=== PATIENT | female | born 1930 | race Caucasian/White ===

== ENCOUNTER 2018-03-04 11:42 | Inpatient (IN) ==
--- NOTE | 2018-03-04 13:36 | ED ---
HPI General Chief complaint: Back Pain/Injury Stated complaint: Fall Time Seen by Provider: 03/04/18 13:21 Source: patient and family Mode of arrival: EMS Limitations: no limitations History of Present Illness HPI narrative: 87-year-old female with a history of rheumatoid arthritis, chronic low back pain, CAD not on blood thinners presents to the emergency department for evaluation of low back pain after a fall that occurred at home. Patient states she had 2 falls today and believes they were mechanical falls. She says second fall was questionable because she does not know how she fell. She denies loss consciousness. Denies headache or blurred vision. Denies fevers, loss of bowel or bladder function, saddle anesthesia, IV drug use, direct trauma. She says she thinks she might be dehydrated because she does not drink enough water. Family expresses concern because of the frequent falls. Onset (ago): minute(s) Location: back Radiation: non-radiation Severity: mild Quality: aching and constant Pain Consistency: constant Relieving factors: none Exacerbating factors: none Associated symptoms: Denies confusion, chest pain, fever/chills, nausea/vomiting , shortness of breath, syncope and weakness Treatments prior to arrival: Reports none Related Data Home Medications Medication Instructions Recorded Confirmed acetaminophen [Tylenol Extra 500 mg PO BID 03/04/18 03/04/18 Strength] aspirin 81 mg PO DAILY 03/04/18 03/04/18 celecoxib 200 mg PO DAILY 03/04/18 03/04/18 folic acid 1 mg PO DAILY 03/04/18 03/04/18 latanoprost 1 drp OPHTHALMIC (EYE) QPM 03/04/18 03/04/18 nitroglycerin [Nitrostat] 0.4 mg SUBLINGUAL Q5-15M PRN 03/04/18 03/04/18 prednisone 5 mg PO DAILY 03/04/18 03/04/18 rabeprazole 20 mg PO EVERY OTHER DAY 03/04/18 03/04/18 rosuvastatin 5 mg PO Q3D 03/04/18 03/04/18 triamterene-hydrochlorothiazid 1 tab PO DAILY 03/04/18 03/04/18 Allergies Allergy/AdvReac Type Severity Reaction Status Date / Time No Known Allergies Allergy Verified 03/04/18 12:15 Review of Systems ROS: all other systems reviewed are negative PMFSH History History Provided By: Patient and Family Member Medical History Medical History Arthritis (Acute) Chronic back pain (Acute) GERD (gastroesophageal reflux disease) (Acute) Glaucoma (Acute) HTN (hypertension) (Acute) High cholesterol (Acute) Osteoarthritis (Acute) Presence of stent in coronary artery in patient with coronary artery disease ( Acute) Rheumatoid arthritis (Acute) Surgical History Surgical History Presence of stent in coronary artery (Acute) Family History Family History Other Family history of hypertension Social History Social History Substance History: No History of Abuse Second Hand Smoke Exposure: No Smoking Status: Never smoker How Often Do You Have a Drink Containing Alcohol: Never Hx Recent Travel: No Recent Travel in [facility] within the Last 8 Weeks: No Recent Out of Country Travel within the Last 8 Weeks: No Exam Narrative Exam Narrative: GENERAL: WD, WN in NAD SKIN: Focused skin assessment warm/dry. HEAD: Atraumatic. Normocephalic. EYES: Pupils equal and round. No scleral icterus. No injection or drainage. ENT: No nasal bleeding or discharge. Mucous membranes pink and moist. NECK: Trachea midline. No JVD. No midline tenderness CARDIOVASCULAR: Regular rate and rhythm. No murmur appreciated. RESPIRATORY: No accessory muscle use. Clear to auscultation. Breath sounds equal bilaterally. GASTROINTESTINAL: Abdomen soft, non-tender, nondistended. Hepatic and splenic margins not palpable. MUSCULOSKELETAL: No obvious deformities. No clubbing. No cyanosis. No edema. BACK: No CVA tenderness. No rash. No point tenderness on palpation of the spine. NEUROLOGICAL: Awake and alert. No obvious cranial nerve deficits. Motor grossly within normal limits. Normal speech. Bilateral lower extremities dorsalis pedis pulses present, sensation intact to light touch, grade 5/5 strength PSYCHIATRIC: Appropriate mood and affect; insight and judgment normal. Course Initial Documented Vital Signs Temperature 97.1 F L 03/04/18 12:22 Pulse Rate 112 H 03/04/18 12:22 Respiratory Rate 18 03/04/18 12:22 Blood Pressure 110/53 L 03/04/18 12:22 Pulse Oximetry 95 03/04/18 12:22 Last Documented Vital Signs Temperature 97.1 F L 03/04/18 12:22 Pulse Rate 82 03/04/18 21:17 Respiratory Rate 16 03/04/18 21:17 Blood Pressure 93/52 L 03/04/18 21:17 Pulse Oximetry 96 03/04/18 21:17 Critical Care Time Critical Care Time: Yes Total Critical Care Time: 35 Attestation: Time to perform other separately billable procedures was not included in the critical care time. My time did not include minutes spent treating any other patients simultaneously or on activities that did not directly contribute to the patient's treatment. The services I provided to this patient were to treat and/or prevent clinically significant deterioration due to NSTEMI I provided critical care services requiring my management, as noted below: Chart data review, documentation time, medication orders and management, vital sign assessments/reviewing monitor data, ordering and reviewing lab tests, ordering and interpreting/reviewing x-rays and diagnostic studies, care of the patient and discussion of the patient with the admitting physicians Medical Decision Making RORO Attestation RORO supervised visit: Yes Attestation: I, Dr. Birch, have reviewed the advance practice practitioner's documentation and am in agreement, met with the patient face to face, made the diagnosis, and the medical decision making was done by me. *My assessment and Findings: This patient presented because of a couple of falls in the recent past. She has no complaints of chest pain, shortness of breath, fatigue. However, she had an EKG done as part of her workup. The EKG shows some subtle ST segment this prompted a troponin. Her troponin is greater than 40. A heparin drip has been started. She is being admitted to medicine. Please see Kiki Sims PA-C's note for a more detailed H&P, final diagnosis and disposition MDM Narrative Medical decision making narrative: 87y female presents to the ED for evaluation after a fall that occurred while at home today. She states she lives alone and has a life alert that she used to summon [facility] today. She denies LOC, weakness, blurred vision, headache. She describes mechanical falls. She states her chronic back pain is worse but does not feel 'different'. Denies red flag symptoms. She has no other complaints today. EKG shows sinus tachycardia rate 107, ST elevation noted in lead II & III. Previous EKG (2013) without obvious evidence of ST elevations or depressions. Vital signs- tachycardic at 112, BP 110/53. Review of the records shows pt has had borderline hypotension and tachycardia. Physical exam findings are unremarkable. No evidence of trauma. No noticeable TTP to back but given her history, will order CT for evaluation. Lumbar spine CT stable. Head CT stable. Labs are notable for WBC 25.6 (patient takes steroids on a regular basis), H/H 13.1/38.7, Plt 191, INR 1.1, BUN/Cr 39/1.09, Troponin>40. Repeat EKG shows ST elevation in Lead III, depression in V2. No contiguous lead changes. Her senior sql server dba is Dr. Solano. Pt has an NSTEMI. Will initiate heparin and admit. Ordered CXR which appeared stable. I spoke to Dr. Powell who agreed to the admission. Medical Screen Exam Complete: Yes Emergency Medical Condition: Yes Differential Diagnosis Differential Diagnosis: Mechanical fall, vasovagal syncope, orthostatic hypotension, ICH, closed head injury Medical Records Medical records reviewed: Yes I reviewed the patient's medical records. Lab Data Result diagrams: 03/04/18 14:00 03/04/18 14:00 Lab Results 03/04/18 03/04/18 03/04/18 Range/Units 14:00 14:00 14:00 WBC 25.6 H (4.0-11.0) th/mm3 RBC 3.97 L (4.00-5.30) mil/mm3 Hgb 13.1 (11.6-15.3) gm/dL Hct 38.7 (35.0-46.0) % MCV 97.4 (80.0-100.0) fL MCH 33.1 (27.0-34.0) pg MCHC 34.0 (32.0-36.0) % RDW 15.1 (11.6-17.2) % Plt Count 191 (150-450) th/mm3 MPV 7.7 (7.0-11.0) fL Prelim Diff (Auto) Slide review pending Neut % (Auto) 89.1 H (16.0-70.0) % Lymph % (Auto) 4.2 L (9.0-44.0) % [place] % (Auto) 6.6 (0.0-8.0) % Eos % (Auto) 0.0 (0.0-4.0) % Baso % (Auto) 0.1 (0.0-2.0) % Neut # (Auto) 22.8 H (1.8-7.7) th/mm3 Lymph # (Auto) 1.1 (1.0-4.8) th/mm3 [place] # (Auto) 1.7 H (0.0-0.9) th/mm3 Eos # (Auto) 0.0 (0.0-0.4) th/mm3 Baso # (Auto) 0.0 (0.0-0.2) th/mm3 WBC Differential Manual diff final Seg Neuts % (Manual) 71 H (16-70) % Band Neuts % (Manual) 18 H (0-6) % Lymphocytes % (Manual) 5 L (9-44) % Monocytes % (Manual) 6 (0-8) % Abs Neuts (Manual) 22.8 H (1.8-7.7) th/mm3 Differential Comment . Platelet Estimate Normal (Normal) Platelet Morphology Normal (Normal) RBC Morphology Normal (Normal) PT 11.3 (9.8-11.6) sec INR 1.1 Ratio APTT 30.1 (24.3-30.1) sec Sodium 136 (136-145) meq/L Potassium 3.7 (3.5-5.1) meq/L Chloride 99 (98-107) meq/L Carbon Dioxide 26.3 (21.0-32.0) meq/L Anion Gap 11 (5-15) meq/L BUN 39 H (7-18) mg/dL Creatinine 1.09 H (0.50-1.00) mg/dL Estimated GFR 47 L (>89) mL/min Random Glucose 126 H (74-106) mg/dL Calcium 9.5 (8.5-10.1) mg/dL Total Bilirubin 0.8 (0.2-1.0) mg/dL AST 303 H (15-37) U/L ALT 40 (10-53) U/L Alkaline Phosphatase 56 (45-117) U/L Troponin I (0.02-0.05) ng/mL Total Protein 6.5 (6.4-8.2) g/dL Albumin 3.2 L (3.4-5.0) g/dL Urine Color (Yellw/Straw) Urine Clarity (Clear) Urine pH (5.0-8.5) Ur Specific [place] (1.002-1.035) Urine Protein (Neg-Trace) mg/dL Urine Glucose (UA) (Negative) mg/dL Urine Ketones (Negative) mg/dL Urine Occult Blood (Negative) Urine Nitrate (Negative) Urine Bilirubin (Negative) Urine Urobilinogen (Less than 2) mg/dL Ur Leukocyte Esterase (Negative) Urine RBC (0-3) /hpf Urine WBC (0-5) /hpf Ur Squamous Epith Cells (0-5) /hpf Amorphous Sediment (None) /hpf Urine Bacteria (None) /hpf Urine Mucus (Occasional) /lpf Micro UA Comment Ur Microscopic Review Urine Culture Comments 03/04/18 03/04/18 Range/Units 14:00 15:40 WBC (4.0-11.0) th/mm3 RBC (4.00-5.30) mil/mm3 Hgb (11.6-15.3) gm/dL Hct (35.0-46.0) % MCV (80.0-100.0) fL MCH (27.0-34.0) pg MCHC (32.0-36.0) % RDW (11.6-17.2) % Plt Count (150-450) th/mm3 MPV (7.0-11.0) fL Prelim Diff (Auto) Neut % (Auto) (16.0-70.0) % Lymph % (Auto) (9.0-44.0) % [place] % (Auto) (0.0-8.0) % Eos % (Auto) (0.0-4.0) % Baso % (Auto) (0.0-2.0) % Neut # (Auto) (1.8-7.7) th/mm3 Lymph # (Auto) (1.0-4.8) th/mm3 [place] # (Auto) (0.0-0.9) th/mm3 Eos # (Auto) (0.0-0.4) th/mm3 Baso # (Auto) (0.0-0.2) th/mm3 WBC Differential Seg Neuts % (Manual) (16-70) % Band Neuts % (Manual) (0-6) % Lymphocytes % (Manual) (9-44) % Monocytes % (Manual) (0-8) % Abs Neuts (Manual) (1.8-7.7) th/mm3 Differential Comment Platelet Estimate (Normal) Platelet Morphology (Normal) RBC Morphology (Normal) PT (9.8-11.6) sec INR Ratio APTT (24.3-30.1) sec Sodium (136-145) meq/L Potassium (3.5-5.1) meq/L Chloride (98-107) meq/L Carbon Dioxide (21.0-32.0) meq/L Anion Gap (5-15) meq/L BUN (7-18) mg/dL Creatinine (0.50-1.00) mg/dL Estimated GFR (>89) mL/min Random Glucose (74-106) mg/dL Calcium (8.5-10.1) mg/dL Total Bilirubin (0.2-1.0) mg/dL AST (15-37) U/L ALT (10-53) U/L Alkaline Phosphatase (45-117) U/L Troponin I Greater than 40.00 H* (0.02-0.05) ng/mL Total Protein (6.4-8.2) g/dL Albumin (3.4-5.0) g/dL Urine Color Yellow (Yellw/Straw) Urine Clarity Hazy H (Clear) Urine pH 5.0 (5.0-8.5) Ur Specific [place] 1.012 (1.002-1.035) Urine Protein 30 H (Neg-Trace) mg/dL Urine Glucose (UA) Negative (Negative) mg/dL Urine Ketones Negative (Negative) mg/dL Urine Occult Blood Small H (Negative) Urine Nitrate Negative (Negative) Urine Bilirubin Negative (Negative) Urine Urobilinogen Less than 2 (Less than 2) mg/dL Ur Leukocyte Esterase Trace H (Negative) Urine RBC 9 H (0-3) /hpf Urine WBC 4 (0-5) /hpf Ur Squamous Epith Cells <1 (0-5) /hpf Amorphous Sediment Rare H (None) /hpf Urine Bacteria Occasional H (None) /hpf Urine Mucus Few H (Occasional) /lpf Micro UA Comment Cath-culture ind Ur Microscopic Review Not Reportable Urine Culture Comments Cath-cult indicated Imaging Data Radiologist's impression: Head CT 03/04/18 13:31 CONCLUSION: 1. Negative trauma study with no evidence of fracture or hemorrhage. 2. Moderate atrophic change again noted. . Lumbar Spine CT 03/04/18 13:31 CONCLUSION: 1. No acute fracture. 2. Grade 1 anterior spondylolisthesis of L5 on S1 of approximately 9 mm which appears chronic. 3. Diffuse moderate to severe degenerative disc changes. 4. Moderate rotatory scoliosis. Chest X-Ray 03/04/18 17:07 CONCLUSION: Rotated and underinflated examination without an acute abnormality identified given the technique. Carotid Doppler Study 03/04/18 17:40 CONCLUSION: 1. Right Internal Carotid Artery: Moderate visible plaque without hemodynamically significant stenosis. 2. Left Internal Carotid Artery: Moderate visible plaque without hemodynamically significant stenosis ECG Data EKG Prior to Arrival: No Attestation: I personally reviewed and interpreted this ECG as follows: ( Initial EKG shows a sinus rhythm with a rate of 107. She has some subtle ST segment 2, 3 and aVF. Repeat EKG again shows a sinus rhythm with a rate of 92. The subtle ST changes in the inferior leads persist.) Discharge Plan Discharge Disposition Patient Disposition: 30 Still Patient Discharge Condition Condition: Stable Discharge Details Diagnosis: Non-ST elevation HI (NSTEMI), Falls frequently Physicians Team ED Provider: Zoë Birch ED Midlevel Provider: Kiki Sims Primary Care Provider: Evelia Castle Attending Provider: Mathieu Powell Other Providers: Nikita Solano ; [facility],Insurance Status ED Status: Admitted Patient
[2018-03-04] MEDS ORDERED: Sod Chloride 0.9% Inj 1,000 ML IV.SIG SCH (13:45)
[2018-03-04 14:22] LABS: Baso % (Auto) 0.1 % (0.0-2.0); Hematocrit 38.7 % (35.0-46.0); Hemoglobin 13.1 gm/dL (11.6-15.3); Lymph # (Auto) 1.1 th/mm3 (1.0-4.8); Lymph % (Auto) 4.2 % (9.0-44.0); Mean Corpuscular Hemoglobin 33.1 pg (27.0-34.0); Mean Corpuscular Volume 97.4 fL (80.0-100.0); Mean Platelet Volume 7.7 fL (7.0-11.0); Mono # (Auto) 1.7 th/mm3 (0.0-0.9); Mono % (Auto) 6.6 % (0.0-8.0); Neut # (Auto) 22.8 th/mm3 (1.8-7.7); Neut % (Auto) 89.1 % (16.0-70.0); Platelet Count 191 th/mm3 (150-450); Red Blood Count 3.97 mil/mm3 (4.00-5.30); Red Cell Distribution Width 15.1 % (11.6-17.2); White Blood Count 25.6 th/mm3 (4.0-11.0)
[2018-03-04 14:32] LABS: INR 1.1 Ratio
[2018-03-04 14:33] LABS: Prothrombin Time 11.3 sec (9.8-11.6)
[2018-03-04 14:34] LABS: Activated Partial Thrombo Time 30.1 sec (24.3-30.1)
[2018-03-04 14:35] LABS: Alanine Aminotransferase 40 U/L (10-53); Albumin 3.2 g/dL (3.4-5.0); Anion Gap 11 meq/L (5-15); Aspartate Aminotransferase 303 U/L (15-37); Blood Urea Nitrogen 39 mg/dL (7-18); Calcium 9.5 mg/dL (8.5-10.1); Carbon Dioxide 26.3 meq/L (21.0-32.0); Chloride 99 meq/L (98-107); Glomerular Filtration Rate 47 mL/min (>89); Glucose,Random 126 mg/dL (74-106); Potassium 3.7 meq/L (3.5-5.1); Sodium 136 meq/L (136-145)
[2018-03-04 14:37] LABS: Alkaline Phosphatase 56 U/L (45-117); Total Protein 6.5 g/dL (6.4-8.2)
--- NOTE | 2018-03-04 14:39 | CT ---
EXAM DATE: 03/04/2018 2:36 PM EDT AGE/SEX: 87 years / Female INDICATIONS: Patient fell, possible syncope CLINICAL DATA: This is the patient's initial encounter. Patient reports that signs and symptoms have been present for 1 day and indicates a pain score of 5/10. MEDICAL/SURGICAL HISTORY: Hypertension. None. RADIATION DOSE: 35.99 CTDI (mGy) [place] [facility] [place] . TECHNIQUE: CT of the head without contrast. Using automated exposure control and adjustment of the mA and/or kV according to patient size, radiation dose was kept as low as reasonably achievable to ob tain optimal diagnostic quality images. DICOM format image data is available electronically for revi ew and comparison. FINDINGS: Cerebrum: The ventricles are normal for age with moderate atrophic changes again noted with sulcal a nd ventricular prominence. No evidence of midline shift, mass lesion, hemorrhage or acute infarction. No extraaxial fluid collections are seen. Posterior Fossa: The cerebellum and brainstem are intact. The 4th ventricle is midline. The cerebe llopontine angle is unremarkable. Extracranial: The visualized portion of the orbits is intact. Skull: The calvaria is intact. No evidence of skull fracture. CONCLUSION: 1. Negative trauma study with no evidence of fracture or hemorrhage. 2. Moderate atrophic change again noted. . Electronically signed by: Seth Nicolas MD 03/04/2018 2:37 PM EDT
[2018-03-04 14:54] LABS: Lymphocytes 5 % (9-44); Monocytes 6 % (0-8); Platelet Estimate Normal (Normal); Platelet Morphology Normal (Normal); RBC Morphology Normal (Normal)
--- NOTE | 2018-03-04 15:21 | CT ---
EXAM DATE: 03/04/2018 3:13 PM EDT AGE/SEX: 87 years / Female INDICATIONS: Patient fell this morning, complains of low back pain CLINICAL DATA: This is the patient's initial encounter. Patient reports that signs and symptoms have been present for 1 day and indicates a pain score of 5/10. MEDICAL/SURGICAL HISTORY: Hypertension. None. RADIATION DOSE: 16.03 CTDI (mGy) COMPARISON: . TECHNIQUE: Contiguous axial images were acquired with a multirow detector CT scanner without contras t. Multiplanar reconstructions in the sagittal and coronal plane were also performed. Using automate d exposure control and adjustment of the mA and/or kV according to patient size, radiation dose was k ept as low as reasonably achievable to obtain optimal diagnostic quality images. DICOM format image data is available electronically for review and comparison. FINDINGS: Vertebrae: Normal vertebral body height. There is a moderate rotatory scoliosis. There is diffuse os teopenia. Discs: There is diffuse degenerative disc changes with disc space narrowing, sclerosis and hypertroph ic change. Vacuum disc phenomena present at all levels. Alignment: Is a grade 1 anterior spondylolisthesis of L5 on S1 of approximately 9 mm. Axial images demonstrate that the vertebral bodies and posterior elements are intact. The visualized portions of the sacrum are intact as well. Disc bulges are present with no distinct protrusion. Right renal cyst is noted. There are gallstones layering dependently in the gallbladder. CONCLUSION: 1. No acute fracture. 2. Grade 1 anterior spondylolisthesis of L5 on S1 of approximately 9 mm which appears chronic. 3. Diffuse moderate to severe degenerative disc changes. 4. Moderate rotatory scoliosis. Electronically signed by: Seth Nicolas MD 03/04/2018 3:20 PM EDT
[2018-03-04] MEDS ORDERED: Sodium Chlor 0.9% Inj 500 ML IV.SIG SCH ×2 (16:00→21:00)
[2018-03-04 16:44] LABS: Amorphous Sediment,Urine Rare /hpf; Bacteria,Urine Occasional /hpf; Bilirubin,Urine Negative (Negative); Clarity,Urine Hazy (Clear); Color,Urine Yellow (Yellw/Straw); Glucose,Urine (UA) Negative (Negative); Leukocyte Esterase,Urine Trace (Negative); Mucus,Urine Few /lpf (Occasional); Nitrite,Urine Negative (Negative); Specific Gravity,Urine 1.012 (1.002-1.035); Squamous Epithelial Cell,Urine <1 /hpf (0-5)
[2018-03-04] MEDS ORDERED: Heparin 10,000 UNITS/10 ML Vial (for IV use) IV.PUSH STA (17:04)
--- NOTE | 2018-03-04 17:27 | XR ---
EXAM DATE: 03/04/2018 5:22 PM EDT AGE/SEX: 87 years / Female INDICATIONS: Shortness of breath after fall today. CLINICAL DATA: This is the patient's initial encounter. Patient reports that signs and symptoms have been present for 1 day and indicates a pain score of 0/10. MEDICAL/SURGICAL HISTORY: Hypertension. . Cardiac stent. COMPARISON: [facility] – [place]ST SINGLE AP, 02/28/2014. . FINDINGS: Portable AP view of the chest demonstrates a normal-sized cardiac silhouette with calcification of th e aorta. Multiple EKG lines overlie the patient. There is elevation of the left hemidiaphragm with a similar appearance to the prior examination. No effusion, consolidation, or pneumothorax is identifie d. There is thoracolumbar scoliosis. 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 CONCLUSION: Rotated and underinflated examination without an acute abnormality identified given the technique. Electronically signed by: Giovani Parks MD 03/04/2018 5:26 PM EDT
[2018-03-04] MEDS ORDERED: ROSUVASTATIN 5 MG PO SCH (17:30)
[2018-03-04] MEDS ORDERED: Acetaminophen 325 MG Tablet PO PRN (17:39)
[2018-03-04] MEDS ORDERED: oxyCODONE/Acetaminophen 10/325 Tablet PO PRN (17:39)
[2018-03-04] MEDS ORDERED: Naloxone Inj 0.4 MG/ML Vial IV.PUSH PRN (17:39)
[2018-03-04] MEDS ORDERED: Morphine Inj 4 MG/ML Vial IV.PUSH PRN ×2 (17:39)
[2018-03-04] MEDS ORDERED: Morphine Sulfate Inj 2 MG/ML Vial IV.PUSH PRN (17:39)
[2018-03-04] MEDS ORDERED: Nitroglycerin SL (Override) 0.4 MG Tab SL PRN (17:40)
[2018-03-04] MEDS ORDERED: Heparin Drip 25,000 UNIT/250 ML BAG IV.CONT PRN (17:56)
--- NOTE | 2018-03-04 17:59 | P.HPIM ---
History of Present Illness Service: [facility] Primary Care Physician: Evelia Castle MD Chief Complaint: Status post fall with back pain History of Present Illness: Patient is an 87-year-old female with a history of rheumatoid arthritis, chronic low back pain, coronary artery disease not on any blood thinners resented to emergency department for evaluation of low back pain after a fall that occurred at home. Patient stated that she had at least 2 falls today and believes they were mechanical falls. She states the second fall was questionable because she does not know how she fell. Denies any loss of consciousness. She denies any headache or blurred vision. She wears glasses. She denies any fevers, loss of bowel or bladder function, any saddle anesthesia , denies any history of IV drug use, denies any direct trauma. Patient thinks she may have been dehydrated because of water. Mild pain that was aching and constant. Was found to have an elevated troponin due to a mildly abnormal EKG. Will trend troponins and cardiac enzymes. Consult cardiology. Patient normally sees Dr. Solano. Family history is positive for hypertension Review of Systems All other systems reviewed negative except as stated in HPI [facility] - History History Provided By: Patient, Family Member - Medical History Medical History: Medical History (Last Updated 03/04/18 @ 17:48 by Mathieu Powell DO) Arthritis Chronic back pain GERD (gastroesophageal reflux disease) Glaucoma HTN (hypertension) High cholesterol Osteoarthritis Presence of stent in coronary artery in patient with coronary artery disease Rheumatoid arthritis - Surgical History Surgical History: Surgical History (Last Updated 03/04/18 @ 17:48 by Mathieu Powell DO) Presence of stent in coronary artery - Family History Family History: Family History (Last Updated 03/04/18 @ 17:48 by Mathieu Powell DO) Other Family history of hypertension - Social History I have reviewed the patient's Social History: Yes - Tobacco History Second Hand Smoke Exposure: No Tobacco Use In Past 30 Days: No Smoking Status: Never smoker - Alcohol History How Often Do You Have a Drink Containing Alcohol: Never - Substance Use History Substance History: No History of Abuse - Travel History History of Recent Travel: No Recent Travel in the [place] Within the Last 8 Weeks: No Recent Travel Out of the Country Within the Last 8 Weeks: No - Immunization History Tetanus Immunization: <5 Years Medications and Allergies Active Medications: Active Medications Acetaminophen (Tylenol) 650 mg PO Q6HR PRN PRN Reason: PAIN SCALE 1 TO 2 Aspirin (Aspirin) 325 mg PO DAILY PENDING SALE TO [facility] Aspirin (Ecotrin) 325 mg PO DAILY PENDING SALE TO [facility] Last Admin: 03/04/18 17:33 Dose: Not Given Sodium Chloride (Ns Inj) 1,000 mls @ 50 mls/hr IV.CONT .Q20H PENDING SALE TO [facility] Latanoprost (Xalatan 0.005% Opth Drops) drop EACH EYE QPM PENDING SALE TO [facility] Morphine Sulfate (Morphine Inj) 2 mg IV.PUSH Q3H PRN PRN Reason: PAIN 3-5; IF UABLE TO TAKE PO Morphine Sulfate (Morphine Inj) 4 mg IV.PUSH Q3H PRN PRN Reason: PAIN 6-10;IF UNABLE TO TAKE PO Morphine Sulfate (Morphine Inj) 4 mg IV.PUSH Q3H PRN PRN Reason: BREAKTHROUGH PAIN Naloxone HCl (Narcan Inj) 0.4 mg IV.PUSH UNSCH PRN PRN Reason: SEE LABEL COMMENTS Nitroglycerin (Nitro-Bid 2% Oint) 1 inch TOPICAL Q6HR PENDING SALE TO [facility] Nitroglycerin (Nitrostat Sl) 0.4 mg SL Q5M PRN PRN Reason: CHEST PAIN Nitroglycerin (Nitro-Bid 2% Oint) 1 inch TOPICAL Q6HR PENDING SALE TO [facility] Nitroglycerin (Nitrostat Sl (Override)) 0.4 mg SL Q5-15M PRN PRN Reason: Chest Pain Non-Formulary Medication (Rabeprazole) 20 mg PO EVERY OTHER DAY PENDING SALE TO [facility] Non-Formulary Medication (Rosuvastatin [Rosuvastatin]) 5 mg PO Q3D PENDING SALE TO [facility] Non-Formulary Medication (Folic Acid [Folic Acid]) 20 mg PO DAILY PENDING SALE TO [facility] Ondansetron HCl (Zofran Inj) 4 mg IV.PUSH Q6H PRN PRN Reason: NAUSEA OR VOMITING Oxycodone/Acetaminophen (Percocet 10/325 Mg) 1 tab PO Q6H PRN PRN Reason: PAIN SCALE 6 TO 10 Oxycodone/Acetaminophen (Percocet 5/325 Mg) 1 tab PO Q6H PRN PRN Reason: PAIN SCALE 3 TO 5 Prednisone (Deltasone) 5 mg PO DAILY PENDING SALE TO [facility] Sodium Chloride (Ns Inj) 2 ml IV.FLUSH BID PENDING SALE TO [facility] Sodium Chloride (Ns Inj) 2 ml IV.FLUSH UNSCH PRN PRN Reason: FLUSH AFTER USING IV ACCESS Allergies Allergy/AdvReac Type Severity Reaction Status Date / Time No Known Allergies Allergy Verified 03/04/18 12:15 Home Medications Medication Instructions Recorded Confirmed Type acetaminophen [Tylenol Extra 500 mg PO BID 03/04/18 03/04/18 History Strength] aspirin 81 mg PO DAILY 03/04/18 03/04/18 History celecoxib 200 mg PO DAILY 03/04/18 03/04/18 History folic acid 20 mg PO DAILY 03/04/18 03/04/18 History latanoprost 1 drp OPHTHALMIC (EYE) QPM 03/04/18 03/04/18 History nitroglycerin [Nitrostat] 0.4 mg SUBLINGUAL Q5-15M PRN 03/04/18 03/04/18 History prednisone 5 mg PO DAILY 03/04/18 03/04/18 History rabeprazole 20 mg PO EVERY OTHER DAY 03/04/18 03/04/18 History rosuvastatin 5 mg PO Q3D 03/04/18 03/04/18 History triamterene-hydrochlorothiazid 1 tab PO DAILY 03/04/18 03/04/18 History Exam Vital signs: Vital Signs 03/04/18 12:22 03/04/18 12:27 03/04/18 15:30 Temperature 97.1 F L Pulse Rate 112 H 106 H 92 H Respiratory Rate 18 18 16 Blood Pressure 110/53 L 120/87 89/50 L Pulse Oximetry 95 94 L 96 03/04/18 17:17 03/04/18 17:34 Temperature Pulse Rate 90 Respiratory Rate 18 Blood Pressure 104/51 L Pulse Oximetry 96 96 Intake & Output 03/03/18 03/04/18 03/04/18 18:59 06:59 18:59 Intake Total 1500 / 1500 Balance 1500 / 1500 Weight 44.452 kg Intake: IV 1500 / 1500 NS Inj 1,000 ML @ 1000 mls/hr 1000 / 1000 IV.SIG [facility] Rx#:[id number] NS Inj 500 ML @ 1000 mls/hr IV. 500 / 500 SIG [facility] Rx#:[id number] Narrative: Exam Narrative: GENERAL: WD, WN in NAD SKIN: Focused skin assessment warm/dry. HEAD: Atraumatic. Normocephalic. EYES: Pupils equal and round. No scleral icterus. No injection or drainage. ENT: No nasal bleeding or discharge. Mucous membranes pink and moist. NECK: Trachea midline. No JVD. No midline tenderness no obvious JVD CARDIOVASCULAR: Regular rate and rhythm. No murmur appreciated. S1-S2 no S3 or S4 RESPIRATORY: No accessory muscle use. Clear to auscultation. Breath sounds equal bilaterally. GASTROINTESTINAL: Abdomen soft, non-tender, nondistended. Hepatic and splenic margins not palpable. MUSCULOSKELETAL: No obvious deformities. No clubbing. No cyanosis. No edema. Bilateral hands are contracted and deviated due to rheumatoid arthritis BACK: No CVA tenderness. No rash. No point tenderness on palpation of the spine. NEUROLOGICAL: Awake and alert. No obvious cranial nerve deficits. Motor grossly within normal limits. Normal speech. Bilateral lower extremities dorsalis pedis pulses present, sensation intact to light touch, grade 4/5 strength PSYCHIATRIC: Appropriate mood and affect; insight and judgment normal. Results - Labs CBC & Chem 7: 03/04/18 14:00 03/04/18 14:00 Labs: Short CBC 03/04/18 Range/Units 14:00 WBC 25.6 H (4.0-11.0) th/mm3 Hgb 13.1 (11.6-15.3) gm/dL Hct 38.7 (35.0-46.0) % Plt Count 191 (150-450) th/mm3 BMP 03/04/18 14:00 Sodium 136 Potassium 3.7 Chloride 99 Carbon Dioxide 26.3 BUN 39 H Creatinine 1.09 H Calcium 9.5 Cardiac Enzymes 03/04/18 Range/Units 14:00 Troponin I Greater than 40.00 H* (0.02-0.05) ng/mL Liver Function 03/04/18 Range/Units 14:00 Total Bilirubin 0.8 (0.2-1.0) mg/dL AST 303 H (15-37) U/L ALT 40 (10-53) U/L Alkaline Phosphatase 56 (45-117) U/L Albumin 3.2 L (3.4-5.0) g/dL Urine 03/04/18 Range/Units 15:40 Urine Color Yellow (Yellw/Straw) Urine Clarity Hazy H (Clear) Urine pH 5.0 (5.0-8.5) Ur Specific [place] 1.012 (1.002-1.035) Urine Protein 30 H (Neg-Trace) mg/dL Urine Glucose (UA) Negative (Negative) mg/dL - Imaging Impressions Head CT 03/04/18 13:31 CONCLUSION: 1. Negative trauma study with no evidence of fracture or hemorrhage. 2. Moderate atrophic change again noted. . Lumbar Spine CT 03/04/18 13:31 CONCLUSION: 1. No acute fracture. 2. Grade 1 anterior spondylolisthesis of L5 on S1 of approximately 9 mm which appears chronic. 3. Diffuse moderate to severe degenerative disc changes. 4. Moderate rotatory scoliosis. Chest X-Ray 03/04/18 17:07 CONCLUSION: Rotated and underinflated examination without an acute abnormality identified given the technique. Caprini VTE Risk Assessment Caprini VTE Risk Assessment: Moderate/High Risk (score >= 2) Caprini Risk Assessment Model: Point Value = 1 Point Value = 2 Point Value = 3 Point Value = 5 Age 41-60 Minor surgery BMI > 25 kg/m2 Swollen legs Varicose veins or History of unexplained or recurrent spontaneous Oral contraceptives or hormone replacement Sepsis (< 1 month) Serious lung disease, including pneumonia (< 1 month) Abnormal pulmonary function Acute myocardial infarction Congestive heart failure (< 1 month) History of inflammatory bowel disease Medical patient at bed rest Age 61-74 Arthroscopic surgery Major open surgery (> 45 min) Laparoscopic surgery (> 45 min) Malignancy Confined to bed (> 72 hours) Immobilizing plaster cast Central venous access Age >= 75 History of VTE Family history of VTE Factor V Leiden Prothrombin 12184C Lupus anticoagulant Anticardiolipin antibodies Elevated serum homocysteine Heparin-induced thrombocytopenia Other congenital or acquired thrombophilia Stroke (< 1 month) Elective arthroplasty Hip, pelvis, or leg fracture Acute spinal cord injury (< 1 month) Prophylaxis Regimen: Total Risk Factor Score Risk Level Prophylaxis Regimen 0-1 Low Early ambulation 2 Moderate Order ONE of the following: *Sequential Compression Device (SCD) *Heparin 5000 units SQ BID 3-4 Higher Order ONE of the following medications: *Heparin 5000 units SQ TID *Enoxaparin/Lovenox 40 mg SQ daily (WT < 150 kg, CrCl > 30 mL/min) *Enoxaparin/Lovenox 30 mg SQ daily (WT < 150 kg, CrCl > 10-29 mL/min) *Enoxaparin/Lovenox 30 mg SQ BID (WT < 150 kg, CrCl > 30 mL/min) AND/OR *Sequential Compression Device (SCD) 5 or more Highest Order ONE of the following medications: *Heparin 5000 units SQ TID (Preferred with Epidurals) *Enoxaparin/Lovenox 40 mg SQ daily (WT < 150 kg, CrCl > 30 mL/min) *Enoxaparin/Lovenox 30 mg SQ daily (WT < 150 kg, CrCl > 10-29 mL/min) *Enoxaparin/Lovenox 30 mg SQ BID (WT < 150 kg, CrCl > 30 mL/min) AND *Sequential Compression Device (SCD) Assessment and Plan - Plan NSTEMI -Positive troponins of 40 -Patient denies any current chest pain -Consult cardiology -Started on heparin -Echo -Fasting lipids -Pain control -Fluids -A.m. labs Nitroglycerin as needed Status post fall at home -Patient lives alone Possible mechanical fall versus vasovagal syncope versus orthostatic hypotension Hyperlipidemia continue on statin-Crestor GERD continue on her PPI Rheumatoid arthritis/osteoarthritis continue on the prednisone and pain control as needed Hypertension -hold on blood pressure may adjust as needed -we will give fluids Leukocytosis -Suspect secondary to steroids Renal insufficiency -Possibly due to dehydration versus other Abnormal EKG with sinus rhythm with a rate [address] segment changes in 2, 3 and aVF. Repeat EKG shows sinus rhythm rate of [address] changes in inferior leads are still persistent Patient will be admitted for non-ST elevation MA and frequent falls We will consult cardiology Continue on DVT and GI prophylax Get an echocardiogram and carotids Continue on heparin drip Patient is a full code Continue PT and OT A.m. lab Code Status: Full code Discussed Condition With: RN and patient and emergency room physician and emergency room physician pediatric dental assistant Discharge Planning: Pending cardiac clearance and improved ambulation and may need SNF
--- NOTE | 2018-03-04 18:38 | US ---
EXAM DATE: 03/04/2018 6:24 PM EDT AGE/SEX: 87 years / Female INDICATIONS: Syncope. CLINICAL DATA: This is the patient's initial encounter. Patient reports that signs and symptoms have been present for 1 day and indicates a pain score of 0/10. MEDICAL/SURGICAL HISTORY: Gastroesophageal reflux disease. Hypercholesterolemia. Hypertension . Arthritis. Chronic back pain. Glaucoma. Osteoarthritis. Rheumatoid arthritis. Coronary artery magan nt. COMPARISON: . VELOCITY PARAMETERS: ICA/CCA Ratio: Right 0.9 , Left 1.0 ICA: Right 93.5 cm/sec, Left 88.7 cm/sec CCA: Right 109.7 cm/sec, Left 91.9 cm/sec ECA: Right 98.4 cm/sec, Left 62.8 cm/sec Vertebral: Right 54.8 cm/sec antegrade, Left 53.0 cm/sec antegrade FINDINGS: Right Carotid: Moderate arteriosclerotic plaque is visualized.The waveforms are within normal limits . Left Carotid: Moderate arteriosclerotic plaque is visualized. The waveforms are within normal limits . Other: None. CONCLUSION: 1. Right Internal Carotid Artery: Moderate visible plaque without hemodynamically significant stenos is. 2. Left Internal Carotid Artery: Moderate visible plaque without hemodynamically significant stenosi s Electronically signed by: Kraig Gautam MD 03/04/2018 6:36 PM EDT
[2018-03-04] MEDS: Sod Chloride 0.9% Inj 1,000 ML IV.CONT SCH (18:59)
[2018-03-04] MEDS: Latanoprost 0.005% Opth Drops 2.5 ML Bottle EACH EYE SCH (19:16)
[2018-03-04 22:15] LABS: Cholesterol 87 mg/dL (120-200); Triglycerides 100 mg/dL (42-150)
[2018-03-04 22:29] LABS: Chol/HDL Ratio 2.88 Ratio; Creatine Kinase 1080 U/L (26-192); HDL Cholesterol 30.2 mg/dL (40.0-60.0); LDL Cholesterol,Calculated 37 mg/dL (0-99)
[2018-03-04 22:54] LABS: Creatine Kinase MB 76.6 ng/mL (0.5-3.6)
[2018-03-04 22:56] LABS: CKMB Percent 7.1 % (0.0-4.0)
[2018-03-05 01:33] LABS: Activated Partial Thrombo Time 58.8 sec (24.3-30.1); INR 1.1 Ratio; Prothrombin Time 11.5 sec (9.8-11.6)
[2018-03-05 03:02] LABS: Alanine Aminotransferase 37 U/L (10-53); Albumin 2.5 g/dL (3.4-5.0); Alkaline Phosphatase 48 U/L (45-117); Anion Gap 11 meq/L (5-15); Aspartate Aminotransferase 263 U/L (15-37); Blood Urea Nitrogen 31 mg/dL (7-18); Calcium 7.7 mg/dL (8.5-10.1); Carbon Dioxide 23.5 meq/L (21.0-32.0); Chloride 107 meq/L (98-107); Chol/HDL Ratio 3.34 Ratio; Cholesterol 86 mg/dL (120-200); Creatine Kinase 772 U/L (26-192); Free T4 (Free Thyroxine) 1.26 ng/dL (0.76-1.46); Glomerular Filtration Rate 85 mL/min (>89); Glucose,Random 80 mg/dL (74-106); HDL Cholesterol 25.7 mg/dL (40.0-60.0); LDL Cholesterol,Calculated 38 mg/dL (0-99); Phosphorus 2.6 mg/dL (2.5-4.9); Sodium 141 meq/L (136-145); Total Protein 5.2 g/dL (6.4-8.2); Triglycerides 114 mg/dL (42-150)
[2018-03-05 03:27] LABS: Creatine Kinase MB 56.6 ng/mL (0.5-3.6)
[2018-03-05 03:36] LABS: CKMB Percent 7.3 % (0.0-4.0)
[2018-03-05] MEDS: Potassium Chlor 20 mEq Premix 20 MEQ/100 ML PIGGYBACK IV.SIG SCH ×2 (05:23→07:16)
[2018-03-05 06:03] LABS: Baso % (Auto) 0.3 % (0.0-2.0); Eos # (Auto) 0.1 th/mm3 (0.0-0.4); Eos % (Auto) 0.4 % (0.0-4.0); Hematocrit 32.4 % (35.0-46.0); Hemoglobin 11.1 gm/dL (11.6-15.3); Lymph # (Auto) 1.2 th/mm3 (1.0-4.8); Lymph % (Auto) 6.9 % (9.0-44.0); Mean Corpuscular HGB Conc 34.1 % (32.0-36.0); Mean Corpuscular Hemoglobin 32.7 pg (27.0-34.0); Mean Corpuscular Volume 95.9 fL (80.0-100.0); Mean Platelet Volume 7.7 fL (7.0-11.0); Mono # (Auto) 0.8 th/mm3 (0.0-0.9); Mono % (Auto) 4.7 % (0.0-8.0); Neut # (Auto) 14.8 th/mm3 (1.8-7.7); Neut % (Auto) 87.7 % (16.0-70.0); Platelet Count 162 th/mm3 (150-450); Red Blood Count 3.38 mil/mm3 (4.00-5.30); Red Cell Distribution Width 15.5 % (11.6-17.2); White Blood Count 16.9 th/mm3 (4.0-11.0)
[2018-03-05] MEDS ORDERED: FOLIC ACID 20 MG PO SCH (09:00)
[2018-03-05] MEDS ORDERED: Triamterene/HCTZ 37.5 MG/25 MG Tablet PO SCH (09:00)
--- NOTE | 2018-03-05 09:13 | P.PNIM ---
Subjective Interval history: The patient was resting comfortably in bed. She denied any chest pain. She denied any shortness of breath. She was unsure of what made her fall down. She was not using her cane when she did fall down. She says it has been a while since he has seen Dr. Solano, her wall steamer. Discussed with nursing. Physical Exam Vital signs: Vital Signs 03/04/18 12:22 03/04/18 12:27 03/04/18 15:30 Temperature 97.1 F L Pulse Rate 112 H 106 H 92 H Respiratory Rate 18 18 16 Blood Pressure 110/53 L 120/87 89/50 L Pulse Oximetry 95 94 L 96 03/04/18 17:17 03/04/18 17:34 03/04/18 19:25 Temperature Pulse Rate 90 Respiratory Rate 18 Blood Pressure 104/51 L Pulse Oximetry 96 96 95 03/04/18 19:30 03/04/18 20:53 03/04/18 21:17 Temperature Pulse Rate 90 82 82 Respiratory Rate 18 18 16 Blood Pressure 84/49 L 86/51 L 93/52 L Pulse Oximetry 94 L 95 96 03/04/18 22:29 03/05/18 00:05 03/05/18 03:32 Temperature 98.9 F Pulse Rate 81 77 80 Respiratory Rate 16 16 16 Blood Pressure 90/52 L 93/54 L 96/50 L Pulse Oximetry 95 95 94 L 03/05/18 05:55 03/05/18 06:39 03/05/18 06:45 Temperature 97.6 F Pulse Rate 82 83 82 Respiratory Rate 16 16 Blood Pressure 92/51 L 108/63 Pulse Oximetry 96 94 L Intake & Output 03/04/18 03/05/18 03/05/18 18:59 06:59 18:59 Intake Total 1500 / 1500 500 / 500 100 / 100 Balance 1500 / 1500 500 / 500 100 / 100 Weight 44.452 kg Intake: IV 1500 / 1500 500 / 500 100 / 100 KCl 20 mEq Premix Inj 20 meq In 100 / 100 100 ml @ 50 mls/hr IV.SIG Q2H [facility] Rx#:[id number] NS Inj 1,000 ML @ 1000 mls/hr 1000 / 1000 IV.SIG [facility] [facility] Rx#:[id number] NS Inj 500 ML @ 1000 mls/hr IV. 500 / 500 500 / 500 SIG [facility] Rx#:[id number] Narrative: GENERAL: WD, WN in NAD. SKIN: Focused skin assessment warm/dry. HEAD: Atraumatic. Normocephalic. EYES: Pupils equal and round. No scleral icterus. No injection or drainage. ENT: No nasal bleeding or discharge. Mucous membranes pink and moist. NECK: Trachea midline. No JVD. No midline tenderness no obvious JVD. CARDIOVASCULAR: Regular rate and rhythm. No murmur appreciated. RESPIRATORY: No accessory muscle use. Clear to auscultation. Breath sounds equal bilaterally. GASTROINTESTINAL: Abdomen soft, non-tender, nondistended. Hepatic and splenic margins not palpable. MUSCULOSKELETAL: No obvious deformities. No clubbing. No cyanosis. No edema. Bilateral hands are contracted and deviated due to rheumatoid arthritis. NEUROLOGICAL: Awake and alert. No obvious cranial nerve deficits. Motor grossly within normal limits. Normal speech. PSYCHIATRIC: Appropriate mood and affect; insight and judgment normal. Results - Labs CBC & Chem 7: 03/05/18 05:42 03/05/18 01:57 Laboratory Results - last 24 hr 03/04/18 03/04/18 03/04/18 14:00 14:00 14:00 WBC 25.6 H RBC 3.97 L Hgb 13.1 Hct 38.7 MCV 97.4 MCH 33.1 MCHC 34.0 RDW 15.1 Plt Count 191 MPV 7.7 Prelim Diff (Auto) Slide review pending Neut % (Auto) 89.1 H Lymph % (Auto) 4.2 L [place] % (Auto) 6.6 Eos % (Auto) 0.0 Baso % (Auto) 0.1 Neut # (Auto) 22.8 H Lymph # (Auto) 1.1 [place] # (Auto) 1.7 H Eos # (Auto) 0.0 Baso # (Auto) 0.0 WBC Differential Manual diff final Seg Neuts % (Manual) 71 H Band Neuts % (Manual) 18 H Lymphocytes % (Manual) 5 L Monocytes % (Manual) 6 Abs Neuts (Manual) 22.8 H Differential Comment . Platelet Estimate Normal Platelet Morphology Normal RBC Morphology Normal PT 11.3 INR 1.1 APTT 30.1 Sodium 136 Potassium 3.7 Chloride 99 Carbon Dioxide 26.3 Anion Gap 11 BUN 39 H Creatinine 1.09 H Estimated GFR 47 L Random Glucose 126 H Calcium 9.5 Phosphorus Magnesium Total Bilirubin 0.8 AST 303 H ALT 40 Alkaline Phosphatase 56 Total Creatine Kinase CK-MB (CK-2) CK-MB (CK-2) % Troponin I Total Protein 6.5 Albumin 3.2 L Triglycerides Cholesterol LDL Cholesterol, Calc HDL Cholesterol Cholesterol/HDL Ratio TSH Free T4 Urine Color Urine Clarity Urine pH Ur Specific [place] Urine Protein Urine Glucose (UA) Urine Ketones Urine Occult Blood Urine Nitrate Urine Bilirubin Urine Urobilinogen Ur Leukocyte Esterase Urine RBC Urine WBC Ur Squamous Epith Cells Amorphous Sediment Urine Bacteria Urine Mucus Micro UA Comment Ur Microscopic Review Urine Culture Comments 03/04/18 03/04/18 03/04/18 14:00 15:40 21:30 WBC RBC Hgb Hct MCV MCH MCHC RDW Plt Count MPV Prelim Diff (Auto) Neut % (Auto) Lymph % (Auto) [place] % (Auto) Eos % (Auto) Baso % (Auto) Neut # (Auto) Lymph # (Auto) [place] # (Auto) Eos # (Auto) Baso # (Auto) WBC Differential Seg Neuts % (Manual) Band Neuts % (Manual) Lymphocytes % (Manual) Monocytes % (Manual) Abs Neuts (Manual) Differential Comment Platelet Estimate Platelet Morphology RBC Morphology PT INR APTT Sodium Potassium Chloride Carbon Dioxide Anion Gap BUN Creatinine Estimated GFR Random Glucose Calcium Phosphorus Magnesium Total Bilirubin AST ALT Alkaline Phosphatase Total Creatine Kinase 1080 H CK-MB (CK-2) 76.6 H CK-MB (CK-2) % 7.1 H* Troponin I Greater than 40.00 H* Greater than 40.00 H* Total Protein Albumin Triglycerides 100 Cholesterol 87 L LDL Cholesterol, Calc 37 HDL Cholesterol 30.2 L Cholesterol/HDL Ratio 2.88 TSH 1.070 Free T4 Urine Color Yellow Urine Clarity Hazy H Urine pH 5.0 Ur Specific [place] 1.012 Urine Protein 30 H Urine Glucose (UA) Negative Urine Ketones Negative Urine Occult Blood Small H Urine Nitrate Negative Urine Bilirubin Negative Urine Urobilinogen Less than 2 Ur Leukocyte Esterase Trace H Urine RBC 9 H Urine WBC 4 Ur Squamous Epith Cells <1 Amorphous Sediment Rare H Urine Bacteria Occasional H Urine Mucus Few H Micro UA Comment Cath-culture ind Ur Microscopic Review Not Reportable Urine Culture Comments Cath-cult indicated 03/05/18 03/05/18 03/05/18 00:56 01:57 05:42 WBC 16.9 H RBC 3.38 L Hgb 11.1 L D Hct 32.4 L MCV 95.9 MCH 32.7 MCHC 34.1 RDW 15.5 Plt Count 162 MPV 7.7 Prelim Diff (Auto) Neut % (Auto) 87.7 H Lymph % (Auto) 6.9 L [place] % (Auto) 4.7 Eos % (Auto) 0.4 Baso % (Auto) 0.3 Neut # (Auto) 14.8 H Lymph # (Auto) 1.2 [place] # (Auto) 0.8 Eos # (Auto) 0.1 Baso # (Auto) 0.0 WBC Differential . Seg Neuts % (Manual) Band Neuts % (Manual) Lymphocytes % (Manual) Monocytes % (Manual) Abs Neuts (Manual) Differential Comment Auto diff final Platelet Estimate Platelet Morphology RBC Morphology PT 11.5 INR 1.1 APTT 58.8 H D Sodium 141 Potassium 3.0 L Chloride 107 D Carbon Dioxide 23.5 Anion Gap 11 BUN 31 H Creatinine 0.66 Estimated GFR 85 L Random Glucose 80 Calcium 7.7 L D Phosphorus 2.6 Magnesium 2.0 Total Bilirubin 0.7 AST 263 H ALT 37 Alkaline Phosphatase 48 Total Creatine Kinase 772 H CK-MB (CK-2) 56.6 H CK-MB (CK-2) % 7.3 H* Troponin I Greater than 40.00 H* Total Protein 5.2 L D Albumin 2.5 L D Triglycerides 114 Cholesterol 86 L LDL Cholesterol, Calc 38 HDL Cholesterol 25.7 L Cholesterol/HDL Ratio 3.34 TSH 1.310 Free T4 1.26 Urine Color Urine Clarity Urine pH Ur Specific [place] Urine Protein Urine Glucose (UA) Urine Ketones Urine Occult Blood Urine Nitrate Urine Bilirubin Urine Urobilinogen Ur Leukocyte Esterase Urine RBC Urine WBC Ur Squamous Epith Cells Amorphous Sediment Urine Bacteria Urine Mucus Micro UA Comment Ur Microscopic Review Urine Culture Comments 03/05/18 07:44 WBC RBC Hgb Hct MCV MCH MCHC RDW Plt Count MPV Prelim Diff (Auto) Neut % (Auto) Lymph % (Auto) [place] % (Auto) Eos % (Auto) Baso % (Auto) Neut # (Auto) Lymph # (Auto) [place] # (Auto) Eos # (Auto) Baso # (Auto) WBC Differential Seg Neuts % (Manual) Band Neuts % (Manual) Lymphocytes % (Manual) Monocytes % (Manual) Abs Neuts (Manual) Differential Comment Platelet Estimate Platelet Morphology RBC Morphology PT INR APTT 52.0 H Sodium Potassium Chloride Carbon Dioxide Anion Gap BUN Creatinine Estimated GFR Random Glucose Calcium Phosphorus Magnesium Total Bilirubin AST ALT Alkaline Phosphatase Total Creatine Kinase CK-MB (CK-2) CK-MB (CK-2) % Troponin I Total Protein Albumin Triglycerides Cholesterol LDL Cholesterol, Calc HDL Cholesterol Cholesterol/HDL Ratio TSH Free T4 Urine Color Urine Clarity Urine pH Ur Specific [place] Urine Protein Urine Glucose (UA) Urine Ketones Urine Occult Blood Urine Nitrate Urine Bilirubin Urine Urobilinogen Ur Leukocyte Esterase Urine RBC Urine WBC Ur Squamous Epith Cells Amorphous Sediment Urine Bacteria Urine Mucus Micro UA Comment Ur Microscopic Review Urine Culture Comments - Imaging Impressions Head CT 03/04/18 13:31 CONCLUSION: 1. Negative trauma study with no evidence of fracture or hemorrhage. 2. Moderate atrophic change again noted. . Lumbar Spine CT 03/04/18 13:31 CONCLUSION: 1. No acute fracture. 2. Grade 1 anterior spondylolisthesis of L5 on S1 of approximately 9 mm which appears chronic. 3. Diffuse moderate to severe degenerative disc changes. 4. Moderate rotatory scoliosis. Chest X-Ray 03/04/18 17:07 CONCLUSION: Rotated and underinflated examination without an acute abnormality identified given the technique. Carotid Doppler Study 03/04/18 17:40 CONCLUSION: 1. Right Internal Carotid Artery: Moderate visible plaque without hemodynamically significant stenosis. 2. Left Internal Carotid Artery: Moderate visible plaque without hemodynamically significant stenosis Assessment and Plan - Plan NSTEMI Positive troponins of > 40. Patient denies any chest pain or shortness of breath. CXR unremarkable. Abnormal EKG with sinus rhythm with some subtle ST segment changes in 2, 3 and aVF. -Cardiology consult is pending. -continue heparin gtt. -Echo pending. -Fasting lipids -Fluids. -A.m. labs. -telemetry. -keep pt NPO. Status post fall at home Patient lives alone, has Life Alert. Unsure of cause of fall. She did not lose consciousness. Carotid US unremarkable. -PT/OT. -echo. Rheumatoid arthritis/osteoarthritis Chronic. -continue on the prednisone and pain control as needed. Hypertension Has been hypotensive. -hold off blood pressure meds for now. -we will give fluids. Leukocytosis Suspect secondary to steroids. -monitor for fever. Hypokalemia Likely s/t decreased PO intake. -repleted IV. -follow BMP. PPx: Heparin drip
[2018-03-05] MEDS: Folic Acid 1 MG Tablet PO SCH (09:55)
[2018-03-05] MEDS: predniSONE 5 MG Tablet PO SCH ×2 (09:55→11:59)
[2018-03-05] MEDS: Aspirin 325 MG Tablet PO SCH (09:55)
[2018-03-05 12:53] LABS: Troponin I 31.6 ng/mL (0.02-0.05)
[2018-03-05 12:55] LABS: Anion Gap 9 meq/L (5-15); Blood Urea Nitrogen 26 mg/dL (7-18); Calcium 7.6 mg/dL (8.5-10.1); Carbon Dioxide 23.3 meq/L (21.0-32.0); Chloride 109 meq/L (98-107); Glomerular Filtration Rate Greater Than 89 mL/min (>89); Glucose,Random 68 mg/dL (74-106); Potassium 3.5 meq/L (3.5-5.1); Sodium 141 meq/L (136-145)
[2018-03-05 13:06] LABS: Creatine Kinase MB 28.8 ng/mL (0.5-3.6)
[2018-03-05 13:12] LABS: CKMB Percent 6.6 % (0.0-4.0)
[2018-03-05] MEDS: Sod Chloride 0.9% Inj 1,000 ML IV.CONT SCH (13:17)
--- NOTE | 2018-03-05 14:28 | ECHRPT ---
Indication: CONCLUSIONS The left ventricular systolic function is normal with an estimated ejection fraction in the range of 60-65%. There was limited left ventricular wall motion assessment due to poor endocardial visualization, how ever no obvious regional wall motion abnormalities identified. Moderate concentric left ventricular hypertrophy. Trace mitral valve regurgitation. Trace aortic valve regurgitation. BP: / HR: Rhythm: Technical Quality: FINDINGS LEFT VENTRICLE The left ventricular systolic function is normal with an estimated ejection fraction in the range of 60-65%. Moderate concentric left ventricular hypertrophy. There was limited left ventricular wall motion assessment due to poor endocardial visualization, how ever no obvious regional wall motion abnormalities identified. RIGHT VENTRICLE Normal right ventricular size and systolic function. LEFT ATRIUM The left atrial size is normal. RIGHT ATRIUM The right atrial size is normal. ATRIAL SEPTUM Normal atrial septal thickness without atrial level shunting by limited color doppler interrogation. AORTA The aortic root and proximal ascending aorta are not well visualized. MITRAL VALVE Structurally normal mitral valve. Trace mitral valve regurgitation. AORTIC VALVE Trileaflet aortic valve. Trace aortic valve regurgitation. TRICUSPID VALVE No tricuspid valve stenosis. PULMONARY VALVE No pulmonary valve regurgitation or stenosis. VESSELS The inferior vena cava is normal in size. PERICARDIUM No pericardial effusion. Bassem Joseph (Electronically Signed) Final Date:05 March 2018 14:27
--- NOTE | 2018-03-05 14:35 | P.CONCA ---
History of Present Illness Service: Cardiology Consult date: 03/05/18 Requesting Physician: Seth Hargrove Reason for Consult: Elevated troponin, EKG changes Primary Care Provider: Evelia Castle MD Chief Complaint: Status post fall with back pain History of Present Illness: This is a very pleasant 87-year-old female known to Dr. Solano with a past medical history of atherosclerotic heart disease, dyslipidemia, coronary angioplasty and stents and rheumatoid arthritis. She states that she has not seen Dr. Solano since 2016. She came into the emergency department via EMS after falling yesterday at 8:00 in the morning. She denied any chest pain, shortness of breath, dizziness or syncope. She states that she turned around and thinks that she tripped over her foot which caused her to fall. She does complain of lower back pain after the fall. She currently denies any chest pain, pressure, palpitations, dizziness, edema or shortness of breath. Review of Systems All other systems reviewed negative except as stated in HPI [facility] - History History Provided By: Patient, Family Member - Medical History Medical History: Medical History (Last Updated 03/04/18 @ 17:48 by Mathieu Powell DO) Arthritis Chronic back pain GERD (gastroesophageal reflux disease) Glaucoma HTN (hypertension) High cholesterol Osteoarthritis Presence of stent in coronary artery in patient with coronary artery disease Rheumatoid arthritis - Surgical History Surgical History: Surgical History (Last Updated 03/04/18 @ 17:48 by Mathieu Powell DO) Presence of stent in coronary artery - Family History Family History: Family History (Last Updated 03/04/18 @ 17:48 by Mathieu Powell DO) Other Family history of hypertension - Tobacco History Second Hand Smoke Exposure: No Tobacco Use In Past 30 Days: No Smoking Status: Never smoker - Alcohol History How Often Do You Have a Drink Containing Alcohol: Never - Substance Use History Substance History: No History of Abuse - Travel History History of Recent Travel: No Recent Travel in the [place] Within the Last 8 Weeks: No Recent Travel Out of the Country Within the Last 8 Weeks: No - Immunization History Tetanus Immunization: <5 Years Medications and Allergies Allergies Allergy/AdvReac Type Severity Reaction Status Date / Time No Known Allergies Allergy Verified 03/04/18 12:15 Home Medications Medication Instructions Recorded Confirmed Type acetaminophen [Tylenol Extra 500 mg PO BID 03/04/18 03/04/18 History Strength] aspirin 81 mg PO DAILY 03/04/18 03/04/18 History celecoxib 200 mg PO DAILY 03/04/18 03/04/18 History folic acid 1 mg PO DAILY 03/04/18 03/04/18 History latanoprost 1 drp OPHTHALMIC (EYE) QPM 03/04/18 03/04/18 History nitroglycerin [Nitrostat] 0.4 mg SUBLINGUAL Q5-15M PRN 03/04/18 03/04/18 History prednisone 5 mg PO DAILY 03/04/18 03/04/18 History rabeprazole 20 mg PO EVERY OTHER DAY 03/04/18 03/04/18 History rosuvastatin 5 mg PO Q3D 03/04/18 03/04/18 History triamterene-hydrochlorothiazid 1 tab PO DAILY 03/04/18 03/04/18 History Active Medications: Active Medications Acetaminophen (Tylenol) 650 mg PO Q6HR PRN PRN Reason: PAIN SCALE 1 TO 2 Aspirin (Aspirin) 325 mg PO DAILY [facility] Last Admin: 03/05/18 09:55 Dose: 325 mg Atorvastatin Calcium (Lipitor) 10 mg PO Q3D [facility] Last Admin: 03/05/18 09:55 Dose: Not Given Folic Acid (Folic Acid) 1 mg PO DAILY [facility] Last Admin: 03/05/18 09:55 Dose: 1 mg Sodium Chloride (Ns Inj) 1,000 mls @ 50 mls/hr IV.CONT .Q20H [facility] Last Admin: 03/05/18 13:17 Dose: 50 mls/hr Heparin Sodium/Dextrose (Heparin/D5w 25,000 U/250 Ml) 25,000 unit in 250 mls @ 0 mls/hr IV.CONT TITRATE PRN; Protocol PRN Reason: Per Protocol Last Titration: 03/05/18 05:47 Dose: 500 units/hr, 5 mls/hr Latanoprost (Xalatan 0.005% Opth Drops) 1 drop EACH EYE QPM [facility] Last Admin: 03/04/18 19:16 Dose: Not Given Morphine Sulfate (Morphine Inj) 2 mg IV.PUSH Q3H PRN PRN Reason: PAIN 3-5; IF UABLE TO TAKE PO Morphine Sulfate (Morphine Inj) 4 mg IV.PUSH Q3H PRN PRN Reason: PAIN 6-10;IF UNABLE TO TAKE PO Morphine Sulfate (Morphine Inj) 4 mg IV.PUSH Q3H PRN PRN Reason: BREAKTHROUGH PAIN Naloxone HCl (Narcan Inj) 0.4 mg IV.PUSH UNSCH PRN PRN Reason: SEE LABEL COMMENTS Nitroglycerin (Nitrostat Sl) 0.4 mg SL Q5M PRN PRN Reason: CHEST PAIN Nitroglycerin (Nitro-Bid 2% Oint) 1 inch TOPICAL Q6HR [facility] Last Admin: 03/05/18 11:58 Dose: Not Given Ondansetron HCl (Zofran Inj) 4 mg IV.PUSH Q6H PRN PRN Reason: NAUSEA OR VOMITING Oxycodone/Acetaminophen (Percocet 10/325 Mg) 1 tab PO Q6H PRN PRN Reason: PAIN SCALE 6 TO 10 Oxycodone/Acetaminophen (Percocet 5/325 Mg) 1 tab PO Q6H PRN PRN Reason: PAIN SCALE 3 TO 5 Pantoprazole Sodium (Protonix) 40 mg PO EVERY OTHER DAY [facility] Prednisone (Deltasone) 5 mg PO DAILY [facility] Last Admin: 03/05/18 11:59 Dose: 5 mg Sodium Chloride (Ns Inj) 2 ml IV.FLUSH BID [facility] Last Admin: 03/05/18 09:55 Dose: 2 ml Sodium Chloride (Ns Inj) 2 ml IV.FLUSH UNSCH PRN PRN Reason: FLUSH AFTER USING IV ACCESS Exam Vital signs: Vital Signs 03/04/18 15:30 03/04/18 17:17 03/04/18 17:34 Temperature Pulse Rate 92 H 90 Respiratory Rate 16 18 Blood Pressure 89/50 L 104/51 L Pulse Oximetry 96 96 96 03/04/18 19:25 03/04/18 19:30 03/04/18 20:53 Temperature Pulse Rate 90 82 Respiratory Rate 18 18 Blood Pressure 84/49 L 86/51 L Pulse Oximetry 95 94 L 95 03/04/18 21:17 03/04/18 22:29 03/05/18 00:05 Temperature Pulse Rate 82 81 77 Respiratory Rate 16 16 16 Blood Pressure 93/52 L 90/52 L 93/54 L Pulse Oximetry 96 95 95 03/05/18 03:32 03/05/18 05:55 03/05/18 06:39 Temperature 98.9 F 97.6 F Pulse Rate 80 82 83 Respiratory Rate 16 16 16 Blood Pressure 96/50 L 92/51 L 108/63 Pulse Oximetry 94 L 96 94 L 03/05/18 06:45 03/05/18 07:00 03/05/18 08:00 Temperature 98.5 F Pulse Rate 82 80 80 Respiratory Rate 16 Blood Pressure 100/68 Pulse Oximetry 98 03/05/18 09:00 03/05/18 10:00 03/05/18 11:00 Temperature Pulse Rate 88 86 82 Respiratory Rate Blood Pressure Pulse Oximetry 03/05/18 11:34 03/05/18 12:00 03/05/18 13:00 Temperature 97.8 F Pulse Rate 87 88 94 H Respiratory Rate 16 Blood Pressure 88/54 L Pulse Oximetry 96 03/05/18 14:00 Temperature Pulse Rate 90 Respiratory Rate Blood Pressure Pulse Oximetry Intake & Output 03/04/18 03/05/18 03/05/18 18:59 06:59 18:59 Intake Total 1500 / 1500 500 / 500 990 / 990 Balance 1500 / 1500 500 / 500 990 / 990 Weight 44.452 kg Intake: IV 1500 / 1500 500 / 500 990 / 990 NS Inj 1,000 ML @ 50 mls/hr IV. 890 / 890 CONT .Q20H [facility] Rx#:[id number] KCl 20 mEq Premix Inj 20 meq In 100 / 100 100 ml @ 50 mls/hr IV.SIG Q2H [facility] Rx#:[id number] NS Inj 1,000 ML @ 1000 mls/hr 1000 / 1000 IV.SIG [facility] Rx#:[id number] NS Inj 500 ML @ 1000 mls/hr IV. 500 / 500 500 / 500 SIG BOLUS [facility] Rx#:[id number] Other: Date of Last Bowel Movement 03/05/18 - Constitutional no acute distress - Routine HEENT Exam Head: Present: normocephalic Eye: Present: PERRL ENT: Present: mucous membranes moist - Routine Neck Exam Present: full ROM - Routine Respiratory Exam Present: CTA bilaterally - Routine Cardiovascular Exam Present: S1, S2. Absent: murmur, gallop, rubs - Routine Abdominal Exam Present: normoactive bowel sounds - Routine Extremities Exam Present: full ROM, pulses intact, normal capillary refill. Absent: cyanosis, clubbing, edema - Routine Skin Exam Present: intact - Routine Neurological Exam Present: oriented X3 Results 03/05/18 05:42 03/05/18 11:08 Cardiac Enzymes 03/04/18 03/04/18 03/04/18 Range/Units 14:00 14:00 21:30 AST 303 H (15-37) U/L CK-MB (CK-2) 76.6 H (0.5-3.6) ng/mL Troponin I Greater than 40.00 H* Greater than 40.00 H* (0.02-0.05) ng/mL 03/05/18 03/05/18 Range/Units 01:57 11:08 AST 263 H (15-37) U/L CK-MB (CK-2) 56.6 H 28.8 H (0.5-3.6) ng/mL Troponin I Greater than 40.00 H* 31.60 H* D (0.02-0.05) ng/mL Coagulation 03/04/18 03/05/18 03/05/18 Range/Units 14:00 00:56 07:44 PT 11.3 11.5 (9.8-11.6) sec APTT 30.1 58.8 H D 52.0 H (24.3-30.1) sec Lipids 03/04/18 03/05/18 Range/Units 21:30 01:57 Triglycerides 100 114 (42-150) mg/dL Cholesterol 87 L 86 L (120-200) mg/dL HDL Cholesterol 30.2 L 25.7 L (40.0-60.0) mg/dL Cholesterol/HDL Ratio 2.88 3.34 Ratio CBC 03/04/18 03/05/18 Range/Units 14:00 05:42 WBC 25.6 H 16.9 H (4.0-11.0) th/mm3 RBC 3.97 L 3.38 L (4.00-5.30) mil/mm3 Hgb 13.1 11.1 L D (11.6-15.3) gm/dL Hct 38.7 32.4 L (35.0-46.0) % Plt Count 191 162 (150-450) th/mm3 Neut # (Auto) 22.8 H 14.8 H (1.8-7.7) th/mm3 Lymph # (Auto) 1.1 1.2 (1.0-4.8) th/mm3 Warren # (Auto) 1.7 H 0.8 (0.0-0.9) th/mm3 Eos # (Auto) 0.0 0.1 (0.0-0.4) th/mm3 Baso # (Auto) 0.0 0.0 (0.0-0.2) th/mm3 Comprehensive Metabolic Panel 03/04/18 03/05/18 03/05/18 Range/Units 14:00 01:57 11:08 Sodium 136 141 141 (136-145) meq/L Potassium 3.7 3.0 L 3.5 (3.5-5.1) meq/L Chloride 99 107 D 109 H (98-107) meq/L Carbon Dioxide 26.3 23.5 23.3 (21.0-32.0) meq/L BUN 39 H 31 H 26 H (7-18) mg/dL Creatinine 1.09 H 0.66 0.59 (0.50-1.00) mg/dL Calcium 9.5 7.7 L D 7.6 L (8.5-10.1) mg/dL AST 303 H 263 H (15-37) U/L ALT 40 37 (10-53) U/L Alkaline Phosphatase 56 48 (45-117) U/L Total Protein 6.5 5.2 L D (6.4-8.2) g/dL Albumin 3.2 L 2.5 L D (3.4-5.0) g/dL Intake and Output 03/04/18 03/05/18 03/05/18 22:59 06:59 14:59 Intake Total 1999 990 / 990 Balance 1999 990 / 990 Intake: IV 1999 990 / 990 NS Inj 1,000 ML @ 50 mls/hr IV. 890 / 890 CONT .Q20H [facility] Rx#:[id number] KCl 20 mEq Premix Inj 20 meq In 100 / 100 100 ml @ 50 mls/hr IV.SIG Q2H [facility] Rx#:[id number] NS Inj 1,000 ML @ 1000 mls/hr 1000 / 1000 IV.SIG [place] [facility] Rx#:[id number] NS Inj 500 ML @ 1000 mls/hr IV. 1000 / 1000 SIG [place] Rx#:[id number] Other: Date of Last Bowel Movement 11/01/18 - Imaging and Cardiology Imaging: Impressions Head CT 03/04/18 13:31 CONCLUSION: 1. Negative trauma study with no evidence of fracture or hemorrhage. 2. Moderate atrophic change again noted. . Lumbar Spine CT 03/04/18 13:31 CONCLUSION: 1. No acute fracture. 2. Grade 1 anterior spondylolisthesis of L5 on S1 of approximately 9 mm which appears chronic. 3. Diffuse moderate to severe degenerative disc changes. 4. Moderate rotatory scoliosis. Chest X-Ray 03/04/18 17:07 CONCLUSION: Rotated and underinflated examination without an acute abnormality identified given the technique. Carotid Doppler Study 03/04/18 17:40 CONCLUSION: 1. Right Internal Carotid Artery: Moderate visible plaque without hemodynamically significant stenosis. 2. Left Internal Carotid Artery: Moderate visible plaque without hemodynamically significant stenosis Assessment and Plan - Assessment (1) Non-ST elevation [place] (NSTEMI) Code(s): I21.4 - Non-ST elevation (NSTEMI) myocardial infarction Status: Acute (2) Falls frequently Code(s): R29.6 - Repeated falls Status: Acute - Plan Patient has greatly elevated troponin levels which is significant for NSTEMI. We will start IV heparin for anticoagulation. We will increase her Lipitor to 80 mg daily. We will continue to monitor the patient during her hospitalization. Cardiac cath recommended, the patient is not sure if she wants to proceed. Patient to follow-up with Dr. Solano after discharge from the hospital. Patient was seen and evaluated by Dr. Sánchez who participated in care, management and decision-making. - Attending Attestation Patient seen and examined. I reviewed and agree with the evaluation and plan as presented. Recommend cath and PCI if necessary; the patient is not sure if she wants to proceed. She will let us know about her decision. D/w pt and family.
[2018-03-05 16:33] LABS: Hemoglobin A1c 5.8 % (4.3-6.0)
--- NOTE | 2018-03-05 16:42 | ECG ---
Date Performed: 03/04/2018 Time Performed: 13:59:19 PTAGE: 87 years EKG: SINUS TACHYCARDIA LOW QRS VOLTAGE IN PRECORDIAL LEADS PATTERN CONSISTENT WITH PULMONARY DIS EASE INFERIOR MYOCARDIAL INFARCTION When compared to previous tracing, prior infarct pattern is more Prominent. Heart rate is faster. ABNORMAL ECG PREVIOUS TRACING : 03/01/2014 01.12 DOCTOR: Hudson Jones Interpretating Date/Time 03/05/2018 16:41:05
--- NOTE | 2018-03-05 16:42 | ECG ---
Date Performed: 03/04/2018 Time Performed: 17:03:01 PTAGE: 87 years EKG: Sinus rhythm LOW QRS VOLTAGE IN PRECORDIAL LEADS PATTERN CONSISTENT WITH PULMONARY DISEASE INFERIOR MYOCARDIAL IN FARCTION ACUTE HI Since PREVIOUS TRACING , no significant change noted PREVIOUS TRACIN03/04/2018 13.59 DOCTOR: Hudson Jones Interpretating Date/Time 03/05/2018 16:42:05
--- NOTE | 2018-03-05 16:44 | ECG ---
Date Performed: 03/04/2018 Time Performed: 21:32:28 PTAGE: 87 years EKG: Sinus rhythm LOW QRS VOLTAGE IN PRECORDIAL LEADS POSSIBLE ANTERIOR MYOCARDIAL INFARCTION INFERIOR MYOCARDIAL INFA RCTION ACUTE VT Since PREVIOUS TRACING , no significant change noted PREVIOUS TRACIN03/04/2018 17.03.0 1 DOCTOR: Hudson Jones Interpretating Date/Time 03/05/2018 16:42:58
--- NOTE | 2018-03-05 16:45 | ECG ---
Date Performed: 03/05/2018 Time Performed: 01:51:29 PTAGE: 87 years EKG: Sinus rhythm WITH OCCASIONAL SUPRAVENTRICULAR PREMATURE COMPLEXES LOW QRS VOLTAGE IN PRECORDIAL LEADS POSSIBLE AN TERIOR MYOCARDIAL INFARCTION INFERIOR MYOCARDIAL INFARCTION Since previous tracing, no significant ch matheus noted ABNORMAL ECG PREVIOUS TRACING : 03/04/2018 21.32.28 DOCTOR: Hudson Jones Interpretating Date/Time 03/05/2018 16:43:32
[2018-03-05] MEDS ORDERED: Aspirin 325 MG Tablet PO SCH (17:19)
[2018-03-05] MEDS: Latanoprost 0.005% Opth Drops 2.5 ML Bottle EACH EYE SCH (18:26)
[2018-03-06 05:01] LABS: Hematocrit 33.4 % (35.0-46.0); Hemoglobin 10.9 gm/dL (11.6-15.3); Mean Corpuscular HGB Conc 32.4 % (32.0-36.0); Mean Corpuscular Volume 98.5 fL (80.0-100.0); Mean Platelet Volume 7.3 fL (7.0-11.0); Platelet Count 164 th/mm3 (150-450); Red Blood Count 3.39 mil/mm3 (4.00-5.30); Red Cell Distribution Width 15.2 % (11.6-17.2); White Blood Count 12.6 th/mm3 (4.0-11.0)
[2018-03-06 05:20] LABS: Anion Gap 11 meq/L (5-15); Blood Urea Nitrogen 20 mg/dL (7-18); Calcium 8.1 mg/dL (8.5-10.1); Carbon Dioxide 22.3 meq/L (21.0-32.0); Chloride 108 meq/L (98-107); Glomerular Filtration Rate Greater Than 89 mL/min (>89); Glucose,Random 63 mg/dL (74-106); Magnesium 2.1 mg/dL (1.5-2.5); Potassium 3.5 meq/L (3.5-5.1); Sodium 141 meq/L (136-145)
[2018-03-06] MEDS: Folic Acid 1 MG Tablet PO SCH (08:45)
[2018-03-06] MEDS: Aspirin 325 MG Tablet PO SCH (08:45)
[2018-03-06] MEDS: predniSONE 5 MG Tablet PO SCH (08:45)
[2018-03-06] MEDS ORDERED: Dextrose 50% in Water 50 ML Vial IV.PUSH PRN (09:02)
[2018-03-06] MEDS ORDERED: KCL 20 mEq/D5W/NaCl 0.45% Inj 1,000 ML IV.CONT SCH (10:00)
--- NOTE | 2018-03-06 10:38 | P.PNIM ---
Subjective Interval history: The patient was resting comfortably in bed. She denied any chest pain. She did not have any shortness of breath. She did decide to undergo cardiac catheterization today. Discussed with nursing at the bedside. Physical Exam Vital signs: Vital Signs 03/05/18 11:00 03/05/18 11:34 03/05/18 12:00 Temperature 97.8 F Pulse Rate 82 87 88 Respiratory Rate 16 Blood Pressure 88/54 L Pulse Oximetry 96 03/05/18 13:00 03/05/18 14:00 03/05/18 15:00 Temperature Pulse Rate 94 H 90 91 H Respiratory Rate Blood Pressure Pulse Oximetry 03/05/18 15:32 03/05/18 16:00 03/05/18 17:00 Temperature 98.1 F Pulse Rate 89 94 H 96 H Respiratory Rate 16 Blood Pressure 97/50 L Pulse Oximetry 94 L 03/05/18 18:00 03/05/18 19:00 03/05/18 20:00 Temperature 98.1 F Pulse Rate 86 80 81 Respiratory Rate 16 Blood Pressure 120/59 L Pulse Oximetry 96 96 03/05/18 21:00 03/05/18 22:00 03/05/18 23:00 Temperature 97.9 F Pulse Rate 82 81 72 Respiratory Rate 16 Blood Pressure 108/54 L Pulse Oximetry 95 03/06/18 00:00 03/06/18 01:00 03/06/18 02:00 Temperature Pulse Rate 73 70 71 Respiratory Rate Blood Pressure Pulse Oximetry 03/06/18 03:00 03/06/18 04:00 03/06/18 05:00 Temperature 97.4 F L Pulse Rate 86 78 75 Respiratory Rate 16 Blood Pressure 122/65 Pulse Oximetry 96 03/06/18 05:52 03/06/18 07:00 03/06/18 08:00 Temperature 98 F Pulse Rate 84 82 82 Respiratory Rate 20 Blood Pressure 161/71 H Pulse Oximetry 98 96 03/06/18 09:00 03/06/18 09:02 03/06/18 10:00 Temperature Pulse Rate 82 76 Respiratory Rate 18 Blood Pressure Pulse Oximetry Intake & Output 03/05/18 03/06/18 03/06/18 18:59 06:59 18:59 Intake Total 1570 / 1570 240 / 240 1000 / 1000 Output Total 200 / 200 800 / 800 Balance 1370 / 1370 -560 / -560 1000 / 1000 Weight 43.5 kg Intake: IV 1090 / 1090 1000 / 1000 NS Inj 1,000 ML @ 50 mls/hr IV. 890 / 890 1000 / 1000 CONT .Q20H [facility] Rx#:[id number] KCl 20 mEq Premix Inj 20 meq In 100 / 100 100 ml @ 50 mls/hr IV.SIG Q2H [facility] Rx#:[id number] Oral 480 / 480 240 / 240 Output: Urine 200 / 200 800 / 800 Other: # Voids 4 # Urine Diapers 2 Date of Last Bowel Movement 03/05/18 03/05/18 03/05/18 Narrative: GENERAL: WD, WN in NAD. SKIN: Focused skin assessment warm/dry. HEAD: Atraumatic. Normocephalic. EYES: Pupils equal and round. No scleral icterus. No injection or drainage. ENT: No nasal bleeding or discharge. Mucous membranes pink and moist. NECK: Trachea midline. No JVD. No midline tenderness no obvious JVD. CARDIOVASCULAR: Regular rate and rhythm. No murmur appreciated. RESPIRATORY: No accessory muscle use. Clear to auscultation. Breath sounds equal bilaterally. GASTROINTESTINAL: Abdomen soft, non-tender, nondistended. Hepatic and splenic margins not palpable. MUSCULOSKELETAL: No obvious deformities. No clubbing. No cyanosis. No edema. Bilateral hands are contracted and deviated due to rheumatoid arthritis. NEUROLOGICAL: Awake and alert. No obvious cranial nerve deficits. Motor grossly within normal limits. Normal speech. PSYCHIATRIC: Appropriate mood and affect; insight and judgment normal. Results - Labs CBC & Chem 7: 03/06/18 04:35 03/06/18 04:35 Laboratory Results - last 24 hr 03/05/18 03/05/18 03/05/18 05:42 11:08 11:08 WBC RBC Hgb Hct MCV MCH MCHC RDW Plt Count MPV APTT Sodium 141 Potassium 3.5 Chloride 109 H Carbon Dioxide 23.3 Anion Gap 9 BUN 26 H Creatinine 0.59 Estimated GFR Greater than 89 Random Glucose 68 L Hemoglobin A1c 5.8 Calcium 7.6 L Magnesium Total Creatine Kinase 436 H CK-MB (CK-2) 28.8 H CK-MB (CK-2) % 6.6 H* Troponin I 31.60 H* D 03/06/18 03/06/18 03/06/18 04:35 04:35 04:35 WBC 12.6 H RBC 3.39 L Hgb 10.9 L Hct 33.4 L MCV 98.5 MCH 32.0 MCHC 32.4 RDW 15.2 Plt Count 164 MPV 7.3 APTT 41.4 H D Sodium 141 Potassium 3.5 Chloride 108 H Carbon Dioxide 22.3 Anion Gap 11 BUN 20 H Creatinine 0.55 Estimated GFR Greater than 89 Random Glucose 63 L Hemoglobin A1c Calcium 8.1 L Magnesium 2.1 Total Creatine Kinase CK-MB (CK-2) CK-MB (CK-2) % Troponin I Microbiology 03/04/18 15:40 Clean Catch Urine Urine Culture - Final 50-100,000 cfu/mL mixed gram positive mata (probable contaminants) Assessment and Plan - Plan NSTEMI Positive troponins of > 40. Patient denies any chest pain or shortness of breath. CXR unremarkable. Abnormal EKG with sinus rhythm with some subtle ST segment changes in 2, 3 and aVF. Cardiology consult appreciated. Echo with normal EF. -continue heparin gtt. -telemetry. -keep pt NPO. Cath this afternoon. -continue cardiac regimen including ASA and statin. Status post fall at home Patient lives alone, has Life Alert. Unsure of cause of fall. She did not lose consciousness. Carotid US unremarkable. -PT/OT. Rheumatoid arthritis/osteoarthritis Chronic. -continue on the prednisone and pain control as needed. Hypertension Has been hypotensive. -hold off blood pressure meds for now. -IVFs. Leukocytosis Suspect secondary to steroids. -monitor for fever. Hypokalemia/ Hypoglycemia Likely s/t decreased PO intake. -D5 1/2 NS with KCl. -follow BMP. PPx: Heparin drip Discharge Planning: Await cath today, need cardiology clearance
[2018-03-06] MEDS ORDERED: Heparin/NS PF Inj 1,500 ML ONE (13:22)
[2018-03-06] MEDS ORDERED: fentaNYL Citrate Inj 100 MCG/2 ML Ampul ONE (13:22)
[2018-03-06] MEDS ORDERED: Heparin 10,000 UNITS/10 ML Vial (for IV use) ONE (13:23)
--- NOTE | 2018-03-06 14:28 | CATHPROC ---
[facility] HIS Report Study Information Study Number Admission Scheduled Start Study Start [id number] Mar 04 2018 5:36PM 03/06/2018 Mar 06 2018 1:18PM [place] Service Cardiac Catheterization Admit Source Facility Department Emergency department [facility] - [facility] Physician and Clinical Staff Initial Eliezer Frazier Cattle Dealer Siddhartha Dumont RN Other cathlab, cathlab Recorder Khari Sung RCIS(BS) Scrub Isabelle Dominguez,RT(R) (BS) Procedures Performed Procedure Location (Site) Vessel Name Angiogram LV LV Ventricle Coronary Angiograms LCA Left Coronary L Heart Cath Equipment Time Sales Support Associate Description Size Mfg Part Number Used/Scraped TRANSDUCER, TRUWAVE [id number] 13:28 Sentons PARKS * Used W/STOCKCOCK *[id number] 14:08 [employer] MEDICAL VASCADE, FR5 CLOSURE SYSTEM FR 5 Used *[id number] *[id number] [id number] *[id number] 13:28 [employer] (T/A) BLANKET,WARM AIR CCL * Used *[id number] 13:28 [employer] (T/A) PACK, CCL CUSTOM * Used *[id number] 13:28 MYFX PACER PEN, SKIN DUAL W/ RULER * Used *[id number] PIGTAIL ANG. DXTERITY [id number] 13:57 MEDTRONIC/AVE FR 5 Used CATHETER [id number] 13:28 [employer] MEDICAL WIRE, 3MMJ .035 180CM 180CM Used *[id number] PROBE COVER, STERILE [id number] 13:28 [employer] MEDICAL * Used ULTRASOUND W/ GEL *[id number] 13:28 NAMIC MANIFOLD, 4 PORT * Used *[id number] 13:28 NAMIC TUBING, HIGH PRESSURE 48" 48" Used *[id number] 13:28 NYCOMED OMNIPAQUE, 350 MG, 150ML 150ML [id number] Used 13:54 NYCOMED OMNIPAQUE, 350 MG, 50ML 50ML [id number] Used [id number] 13:28 TERUMO MEDICAL SHEATH, FR5 TERUMO (10CM) FR 5 Used *[id number] History: Current Medications Medication Dosage/Unit Route Frequency Last Date/Time Taken ASA Statins (any) History: Allergies Allergy Reaction No Known Allergies History: Risk Factors Family History of Hypertension Dyslipidemia Previous AK Previous Heart Failure Premature CAD Yes Yes No No No Prior Valve Prior PCI Prior PCIDate Prior CABG Surgery No Yes 05/05/2002 No Cerebrovascular Peripheral Artery Chronic Lung On Dialysis Diabetes Disease Disease Disease No No No No No History: Symptoms/Diagnosis Selection Items Syncope History: Stress Tests Stress or Imaging Studies Performed No History: Other Disease Selection Items CAD HTN History: AK/CV Data Previous Cath Date 05/05/2002 History: Other Current Smoker No Labs Hgb (g/dl) Hct (%) WBC (l/cumm) Platelets (thousands) 11.60-17.00 35.00-51.00 4.00-11.00 150.00-450.00 10.9 33.4 12.6 164 Glucose (mg/dl) BUN (mg/dl) Creatinine (mg/dl) BUN:Creatinine (1:x) 74.00-106.00 7.00-18.00 0.50-1.30 10.00-20.00 63 20 0.5 40 Na (meq/l) K (meq/l) 136.00-145.00 3.50-5.10 141 3.5 INR (PTT:PT) 0.90-1.10 1.1 Troponin I (ng/ml) CPK (u/l) CPK-MB (ng/ML) 0.02-0.05 26.00-308.00 0.50-3.60 31.66 436 28.8 Medication Medication Total Dose (Bolus/Oral) Medication Total Dosage/Unit 1% XYLOCAINE 20 mL FENTANYL 25 mcg VERSED 1 mg Medications (Bolus/Oral) Medication Time Given Dosage/Unit Administered By Reason VERSED 03/06/2018 1:43:51 PM 1 mg TimSiddhartha 1 mg VERSED given in lab by Siddhartha Dumont RN in Left Antecubital via Peripheral IV. Ordered by Eliezer Tejeda. FENTANYL 03/06/2018 1:44:00 PM 25 mcg Tim, Siddhartha 25 mcg FENTANYL given in lab by Siddhartha Dumont RN in Left Antecubital via Peripheral IV. Ordered by Eliezer Bertrand. 1% XYLOCAINE 03/06/2018 1:50:29 PM 20 mL Eliezer Sánchez 20 mL 1% XYLOCAINE given in lab by Eliezer Sánchez in Right Groin via Subcutaneous. Medication (Drip) Medication Time Given Dosage/Unit Concentration/Unit Diluent (ml) Solution IV Solutions 03/06/2018 1:18:29 PM 0 mL (IV) 500 NaCl .9 Patient arrived on IV Solutions in Left Antecubital via Peripheral IV. Pump/Drip Flow = 20 ml/hr usin g NaCl .9. Ordered by Eliezer Sánchez. Initial Case Assessment Cardiovascular HR Rhythm NIBP Chest Pain 80 nsr 121/68 0 Edema Present Skin color Skin None Normal Warm Dry Circulatory - Right Pulses Dorsalis Pedis Femoral 2 3 Scale (0,1,2,3,4,d) Circulatory - Left Pulses Dorsalis Pedis Femoral 2 3 Scale (0,1,2,3,4,d) Neurological State Oriented to time-place- Alert Moves all extremities person Respiration - General Respiration Rate SpO2 (%) (B/min) 15 95 Assessment Cardiovascular HR Rhythm NIBP Chest Pain 79 nsr 107/53 0 Edema Present Skin color Skin None Normal Warm Dry Circulatory - Right Pulses Dorsalis Pedis Femoral 2 3 Scale (0,1,2,3,4,d) Circulatory - Left Pulses Dorsalis Pedis Femoral 2 3 Scale (0,1,2,3,4,d) Neurological State Oriented to time-place- Alert Moves all extremities person Respiration - General Respiration Rate SpO2 (%) (B/min) 15 95 Chronological Log Time Study Chronological Log 13:18:17 Patient arrived via Bed. Heparin drip DCed upon seed cone picker per MD. 13:18:18 Patient Name, D.O.B, / Armband Verified By R.N. 13:18:18 Consent signed by the physician and the patient and verified by the [facility] staff. 13:18:19 Pre-op and post- op instructions given; patient acknowledges understanding of instructions. 13:18:22 Presedation assessment performed by Booster Pump Oiler RN. 13:18:23 Immediate Presedation assesment performed by physician. 13:18:24 Patient has been NPO for More than 6Hrs. 13:18:25 Skin Breakdown- 13:18:26 Patient Warmer Placed on the Table. 13:18:27 Dhiraj Prominences Protected 13:18:28 A # 20 IV was noted in the Antecubital (left). Grade = 0 Patient arrived on IV Solutions in Left Antecubital via Peripheral IV. Pump/Drip Flow = 20 ml/h r using NaCl .9. Ordered 13:18:29 by Eliezer Sánchez. 13:18:30 History and physical on the chart or being dictated. Vitals capture started with the following parameters, Patient=Adult, Interval=5 min, Initial Pr mvpkfu=630 mmHg, 13:22:56 Deflation Rate=5 mmHg, Cuff placed on Left Arm Vitals capture started with the following parameters, Patient=Adult, Interval=5 min, Initial Pr gvilhm=828 mmHg, 13:27:10 Deflation Rate=5 mmHg, Cuff placed on Left Arm 13:27:55 HR=82 bpm, PTED=950/68 mmhg, SpO2=95.0 %, Resp=19 B/min, Pain=0, Sherri=10, Acosta=2 Assessment: Initial Case, HR=80 BPM, Rhythm=nsr, KNVZ=983/68 mmhg, Chest Pain=0, Edema=None, Co garrett=Normal, Skin = Warm, Dry Right Pulses: Tra Ped=2, Femoral=3 13:31:06 Left Pulses: Tra Ped=2, Femoral=3 Neurological: State=Alert, Ox3, RIDDLE Respiration: Resp=15 B/min, SpO2=95 % 13:31:35 Bilateral groins prepped with 2% chlorhexidine, and draped after a 3 minute waiting time. 13:32:45 HR=93 bpm, DJZP=436/65 mmhg, SpO2=95.0 %, Resp=15 B/min, Pain=0, Sherri=10, Acosta=2 13:36:46 MD paged 13:37:49 HR=79 bpm, JURQ=334/61 mmhg, SpO2=93.0 %, Resp=16 B/min, Pain=0, Sherri=10, Acosta=2 13:41:45 MD arrived. 13:43:22 HR=80 bpm, ASKL=401/63 mmhg, SpO2=95.0 %, Resp=18 B/min, Pain=0, Sherri=10, Caosta=2 13:43:48 Contrast Scanned 13:43:49 Immediate Presedation assesment performed by physician. 13:43:51 1 mg VERSED given in lab by Siddhartha Dumont, RN in Left Antecubital via Peripheral IV. Ordered by Eliezer Sánchez. 13:44:00 25 mcg FENTANYL given in lab by Siddhartha Dumont RN in Left Antecubital via Peripheral IV. Ord ered by Eliezer Sánchez. 13:47:51 HR=74 bpm, XVPV=366/56 mmhg, SpO2=89.0 %, Resp=15 B/min Time Out. Correct patient, correct procedure, correct physician, labs, allergies, and equipment verified with golf course laborer 13:49:00 team present. Fire risk assesment completed (see hard stop sheet for coding). Time Out Conc urred by MD and individual staff in procedure. 13:50:28 Case Start 13:50:29 20 mL 1% XYLOCAINE given in lab by Eliezer Sánchez in Right Groin via Subcutaneous. 13:51:13 Reference ECG taken 13:51:24 Access site was Right Femoral Artery. 13:51:27 A SHEATH, FR5 TERUMO (10CM) FR 5 was advanced into the Fem Art (right) using the Percutaneo us technique. 13:51:38 Activated Clotting Time Drawn A PIGTAIL ANG. DXTERITY CATHETER FR 5 was advanced over a wire. OMNIPAQUE, 350 MG, 150ML 150ML was used 13:51:42 for injections. 13:52:48 HR=80 bpm, QXOF=678/62 mmhg, SpO2=93.0 %, Resp=16 B/min, Pain=0, Sherri=10, Acosta=2 13:52:53 Pressure channel 1 zeroed. Recorded Pressure: LV, HR=80, Condition=Condition 1 13:53:07 (Left Ventricle) LV 104/3/13 13:53:26 The LV was injected at 10 cc/sec for a total of 30. OMNIPAQUE, 350 MG, 50ML 50ML used. 13:54:49 ACT (Normal Range 90-180) = 141 Recorded Pressure: LV, Ao, HR=83, Condition=Condition 1 13:55:30 (Left Ventricle) LV 99/2/12, (Aorta) Ao 89/33/59 13:55:45 Catheter was removed A JL 4.0 INFINITI CATHETER FR 5 was advanced over a wire. OMNIPAQUE, 350 MG, 150ML 150ML was us ed for 13:56:17 injections. 13:57:23 The LCA was injected and visualized at various angles. OMNIPAQUE, 350 MG, 150ML 150ML used . 13:57:49 HR=78 bpm, RXQX=092/49 mmhg, SpO2=95.0 %, Resp=14 B/min Recorded Pressure: Ao, HR=80, Condition=Condition 1 13:58:48 (Aorta) Ao 101/50/73 13:58:54 Catheter was removed A AR MOD INFINITI CATHETER FR 5 was advanced over a wire. OMNIPAQUE, 350 MG, 150ML 150ML was us ed for 13:58:55 injections. 14:02:48 HR=74 bpm, YITG=396/58 mmhg, SpO2=96.0 %, Resp=17 B/min, Pain=0, Sherri=10, Acosta=2 14:06:41 Catheter was removed 14:06:44 Case End (Physician broke scrub) 14:07:51 HR=74 bpm, DUEF=837/58 mmhg, SpO2=96.0 %, Resp=16 B/min, Pain=0, Sherri=10, Acosta=2 14:07:55 An injection in the Fem Art (right) was made through the SHEATH, FR5 TERUMO (10CM) FR 5. 14:12:52 HR=72 bpm, ELEK=266/53 mmhg, SpO2=94.0 %, Resp=17 B/min 14:14:43 VASCADE, FR5 CLOSURE SYSTEM FR 5 placement in the Fem Art (right) Assessment: HR=79 BPM, Rhythm=nsr, CFBE=376/53 mmhg, Chest Pain=0, Edema=None, Color=Normal, S kin = Warm, Dry Right Pulses: Tra Ped=2, Femoral=3 14:14:51 Left Pulses: Tra Ped=2, Femoral=3 Neurological: State=Alert, Ox3, RIDDLE Respiration: Resp=15 B/min, SpO2=95 % 14:15:03 Catheter(s) removed without difficulty 14:15:04 Sterile dressing applied to site 14:15:05 No case complications noted. 14:15:05 Cine recording checked. 14:15:08 Bedside Report will be given. 14:15:09 Implantable Device card placed in patient's chart. 14:15:17 A Left Heart Cath was performed. 14:17:51 HR=80 bpm, IWKF=858/58 mmhg, SpO2=95.0 %, Resp=19 B/min, Pain=0, Sherri=10, Acosta=2 14:22:46 Vitals capture stopped. 14:22:48 Patient moved to stretcher End Study - Contrast Media Used In Study Contrast Total Opened (mL) Total Used (mL) Total Wasted (mL) Omnipaque 100 100 0 End Study - Maximum Contrast Load Max Contrast Load (mL) 435.0 End Study - Radiation Exposure Fluoro Time (minutes) 1.6 End Study - Patient Disposition Complications Transferred To Interventional Outcome No Telemetry Bed No attempt made
[2018-03-06] MEDS ORDERED: Iohexol 350 MG/ML 100 ML Vial (for Cath Lab) IVCONTRAST ONE (15:08)
--- NOTE | 2018-03-06 15:23 | MR ---
cc: Eliezer Sánchez MD DATE: 03/06/2018 INDICATIONS: Non-ST myocardial infarction, coronary artery disease, history of coronary stenting. PROCEDURE PERFORMED: 1. Retrograde left heart catheterization with left ventriculography and selective coronary angiography. 2. Moderate sedation. ACCESS SITE: Right femoral artery. EQUIPMENT USED: 5-Yakut pigtail catheter, JL4 and AR modified coronary catheters. MEDICATIONS: Versed IV, fentanyl IV. CONTRAST: Omnipaque 100 mL. COMPLICATIONS: None. ESTIMATED BLOOD LOSS: Less than 10 mL. HEMOSTASIS: Vascade closure. RESULTS: A. HEMODYNAMICS: Heart rate 75 beats per minute with end-diastolic pressure 2 mmHg. Left ventricle: 100/2. Aorta 100/50/73. B. LEFT VENTRICULOGRAPHY: Ejection fraction 55%. Wall motion normal. No mitral regurgitation. C. CORONARY ANGIOGRAPHY: Left main patent. Left anterior descending coronary artery has 30% stenosis in the proximal portion proximally to the stent ; stent in the mid vessel is patent; D1 patent, D2 patent. Left circumflex artery is a nondominant vessel, it is totally occluded in the distal portion which is a small caliber vessel. OM1 is a large branch with 40% proximal stenosis. OM2 is small, patent; OM3 is totally occluded and fills by [id number] collaterals. Right coronary artery is a dominant vessel with 40% stenosis in the mid portion proximally to the stent which has 20% in-stent restenosis. There is a significant amount of calcification in the vessel. PLV is patent. PDA has had 70% ostial stenosis and 40% stenosis in the distal portion. DIAGNOSES: 1. Multivessel coronary artery disease with no evidence of significant stent restenosis. 2. Preserved left ventricular systolic function. DISPOSITION: Ms. Lee was found to have evidence of patent stents in the left anterior descending artery and the right coronary artery. She has moderate disease in the posterior descending branch and total occlusion of a distal circumflex and third marginal branch which fills by collaterals. I recommend to continue medical therapy including aggressive modification of cardiac risk factors and post-ME management. She will follow up with Dr. Solano in his office after discharge. Eliezer Sánchez MD OQ/bam/lefty , 02:30 PM , 02:45 PM [place]
[2018-03-06] MEDS ORDERED: Acetaminophen 325 MG Tablet PO PRN (17:00)
[2018-03-06] MEDS: Latanoprost 0.005% Opth Drops 2.5 ML Bottle EACH EYE SCH (18:26)
[2018-03-07 05:08] LABS: Baso % (Auto) 0.2 % (0.0-2.0); Eos % (Auto) 0.6 % (0.0-4.0); Hematocrit 31.7 % (35.0-46.0); Hemoglobin 10.8 gm/dL (11.6-15.3); Lymph # (Auto) 0.7 th/mm3 (1.0-4.8); Lymph % (Auto) 8.6 % (9.0-44.0); Mean Corpuscular HGB Conc 34.2 % (32.0-36.0); Mean Corpuscular Hemoglobin 32.6 pg (27.0-34.0); Mean Corpuscular Volume 95.5 fL (80.0-100.0); Mean Platelet Volume 7.4 fL (7.0-11.0); Mono # (Auto) 0.7 th/mm3 (0.0-0.9); Mono % (Auto) 8.3 % (0.0-8.0); Neut # (Auto) 6.5 th/mm3 (1.8-7.7); Neut % (Auto) 82.3 % (16.0-70.0); Platelet Count 172 th/mm3 (150-450); Red Blood Count 3.32 mil/mm3 (4.00-5.30); Red Cell Distribution Width 15.1 % (11.6-17.2); White Blood Count 7.9 th/mm3 (4.0-11.0)
[2018-03-07 05:35] LABS: Anion Gap 10 meq/L (5-15); Blood Urea Nitrogen 10 mg/dL (7-18); Calcium 7.5 mg/dL (8.5-10.1); Carbon Dioxide 22.3 meq/L (21.0-32.0); Chloride 109 meq/L (98-107); Glomerular Filtration Rate Greater Than 89 mL/min (>89); Glucose,Random 98 mg/dL (74-106); Potassium 3.5 meq/L (3.5-5.1); Sodium 141 meq/L (136-145)
--- NOTE | 2018-03-07 07:34 | P.PNIM ---
Subjective Interval history: f/u; NSTEMI in no acute distress. denies chest pain or sob. no new complaints. Physical Exam Vital signs: Vital Signs 03/06/18 08:00 03/06/18 09:00 03/06/18 09:02 Temperature Pulse Rate 82 82 Respiratory Rate 18 Blood Pressure Pulse Oximetry 96 03/06/18 10:00 03/06/18 11:00 03/06/18 12:00 Temperature 98 F Pulse Rate 76 80 80 Respiratory Rate 18 Blood Pressure 121/70 Pulse Oximetry 98 03/06/18 13:00 03/06/18 14:30 03/06/18 14:45 Temperature 98 F Pulse Rate 84 69 72 Respiratory Rate 18 20 Blood Pressure 120/57 L 117/64 Pulse Oximetry 98 96 03/06/18 15:00 03/06/18 15:15 03/06/18 15:45 Temperature Pulse Rate 68 71 76 Respiratory Rate 18 20 18 Blood Pressure 112/56 L 115/56 L 117/58 L Pulse Oximetry 95 94 L 96 03/06/18 16:00 03/06/18 16:15 03/06/18 16:45 Temperature Pulse Rate 75 76 76 Respiratory Rate 18 20 Blood Pressure 117/79 98/54 L Pulse Oximetry 95 96 03/06/18 17:00 03/06/18 17:15 03/06/18 18:00 Temperature Pulse Rate 70 80 75 Respiratory Rate Blood Pressure 108/56 L Pulse Oximetry 03/06/18 19:00 03/06/18 19:15 03/06/18 20:00 Temperature 97.8 F 97.8 F Pulse Rate 90 78 84 Respiratory Rate 20 20 Blood Pressure 107/53 L 107/53 L Pulse Oximetry 97 97 94 L 03/06/18 20:15 03/06/18 21:00 03/06/18 22:00 Temperature Pulse Rate 85 78 78 Respiratory Rate 18 Blood Pressure 109/67 Pulse Oximetry 93 L 03/06/18 23:00 03/07/18 00:00 03/07/18 01:00 Temperature 97.8 F Pulse Rate 60 90 68 Respiratory Rate 20 Blood Pressure 107/53 L Pulse Oximetry 97 03/07/18 02:00 03/07/18 03:00 03/07/18 04:00 Temperature 97.8 F Pulse Rate 68 77 68 Respiratory Rate 18 Blood Pressure 119/57 L Pulse Oximetry 97 03/07/18 05:00 03/07/18 06:00 Temperature Pulse Rate 72 77 Respiratory Rate Blood Pressure Pulse Oximetry Intake & Output 03/06/18 03/07/18 03/07/18 18:59 06:59 18:59 Intake Total 1325 / 1325 240 / 240 Output Total 800 / 800 800 / 800 Balance 525 / 525 -560 / -560 Weight 43.5 kg Intake: IV 1205 / 1205 Heparin/NS PF Inj 1,500 ML @ 0 5 / 5 mls/hr .ROUTE .STK-MED ONE Rx#: [id number] Heparin/D5W 25,000 U/250 mL 25, 200 / 200 000 unit In 250 ml @ Per Protocol IV.CONT TITRATE PRN Rx #:[id number] NS Inj 1,000 ML @ 50 mls/hr IV. 1000 / 1000 CONT .Q20[place] Rx#:[id number] Oral 120 / 120 240 / 240 Output: Urine 800 / 800 800 / 800 Other: # Voids 4 3 # Urine Diapers 2 Date of Last Bowel Movement 03/05/18 - Constitutional no acute distress - Routine Respiratory Exam Present: CTA bilaterally - Routine Cardiovascular Exam Present: RRR - Routine Abdominal Exam Present: soft - Routine Extremities Exam Comments: no pedal edema. - Routine Neurological Exam Present: alert, oriented X3 Results - Labs CBC & Chem 7: 03/07/18 04:22 03/07/18 04:22 Laboratory Results - last 24 hr 03/06/18 03/06/18 03/07/18 18:32 21:32 04:22 WBC RBC Hgb Hct MCV MCH MCHC RDW Plt Count MPV Neut % (Auto) Lymph % (Auto) Boyle % (Auto) Eos % (Auto) Baso % (Auto) Neut # (Auto) Lymph # (Auto) Boyle # (Auto) Eos # (Auto) Baso # (Auto) WBC Differential Differential Comment APTT 30.6 D Sodium Potassium Chloride Carbon Dioxide Anion Gap BUN Creatinine Estimated GFR POC Glucose 93 104 Random Glucose Calcium 03/07/18 03/07/18 03/07/18 04:22 04:22 04:42 WBC 7.9 RBC 3.32 L Hgb 10.8 L Hct 31.7 L MCV 95.5 MCH 32.6 MCHC 34.2 RDW 15.1 Plt Count 172 MPV 7.4 Neut % (Auto) 82.3 H Lymph % (Auto) 8.6 L Boyle % (Auto) 8.3 H Eos % (Auto) 0.6 Baso % (Auto) 0.2 Neut # (Auto) 6.5 Lymph # (Auto) 0.7 L Boyle # (Auto) 0.7 Eos # (Auto) 0.0 Baso # (Auto) 0.0 WBC Differential . Differential Comment Auto diff final APTT Sodium 141 Potassium 3.5 Chloride 109 H Carbon Dioxide 22.3 Anion Gap 10 BUN 10 Creatinine 0.50 Estimated GFR Greater than 89 POC Glucose 98 Random Glucose 98 Calcium 7.5 L 03/07/18 06:14 WBC RBC Hgb Hct MCV MCH MCHC RDW Plt Count MPV Neut % (Auto) Lymph % (Auto) Boyle % (Auto) Eos % (Auto) Baso % (Auto) Neut # (Auto) Lymph # (Auto) Boyle # (Auto) Eos # (Auto) Baso # (Auto) WBC Differential Differential Comment APTT Sodium Potassium Chloride Carbon Dioxide Anion Gap BUN Creatinine Estimated GFR POC Glucose 109 Random Glucose Calcium Microbiology 03/04/18 15:40 Clean Catch Urine Urine Culture - Final 50-100,000 cfu/mL mixed gram positive mata (probable contaminants) - Procedures cardiac cath. Assessment and Plan - Plan NSTEMI Positive troponins of > 40. Patient denies any chest pain or shortness of breath. CXR unremarkable. Abnormal EKG with sinus rhythm with some subtle ST segment changes in 2, 3 and aVF. Cardiology consult appreciated. Echo with normal EF. -s/p cardiac cath with Multivessel coronary artery disease with no evidence of significant stent restenosis. Preserved left ventricular systolic function. -continue medical treatment per cardiology. Status post fall at home Patient lives alone, has Life Alert. Unsure of cause of fall. She did not lose consciousness. Carotid US unremarkable. -PT/OT. Rheumatoid arthritis/osteoarthritis Chronic. -continue on the prednisone and pain control as needed. Hypertension -will monitor. Leukocytosis-resolved. Suspect secondary to steroids. Hypokalemia/ Hypoglycemia Likely s/t decreased PO intake. -hold D5 1/2 NS and monitor. Discharge Planning: rehab was offered but the patient declined. dc home with [facility] when cleared by cardiology.
--- NOTE | 2018-03-07 07:38 | P.DCO ---
- Physical Therapy Order: Evaluate and treat - Home Health Nursing Order: Medical education, Signs/symptoms of disease process, Medication education-adverse effect, Nursing assessment with vital signs - Case Management Consult Yes - Certification I have seen patient Lalitha Lee on 03/07/18. My clinical findings support the need for the requested home health care services because: Limited mobility due to disease progression I certify that my clinical findings support that this patient is homebound because: Poor cardiac reserve
--- NOTE | 2018-03-07 07:39 | P.DS ---
Date of admission: 03/04/18 17:36 Primary care physician: Evelia Castle MD Brief History from admission: Patient is an 87-year-old female with a history of rheumatoid arthritis, chronic low back pain, coronary artery disease not on any blood thinners resented to emergency department for evaluation of low back pain after a fall that occurred at home. Patient stated that she had at least 2 falls today and believes they were mechanical falls. She states the second fall was questionable because she does not know how she fell. Denies any loss of consciousness. She denies any headache or blurred vision. She wears glasses. She denies any fevers, loss of bowel or bladder function, any saddle anesthesia , denies any history of IV drug use, denies any direct trauma. Patient thinks she may have been dehydrated because of water. Mild pain that was aching and constant. Was found to have an elevated troponin due to a mildly abnormal EKG. Will trend troponins and cardiac enzymes. Consult cardiology. Patient normally sees Dr. Solano. Family history is positive for hypertension DS: Medications - Discharge Medications Prescriptions: atorvastatin 80 mg PO DAILY 30 Days #30 tab carvedilol [Coreg] 3.125 mg PO BID 30 Days #60 tab clopidogrel [Plavix] 75 mg PO DAILY 30 Days #30 tab isosorbide mononitrate 30 mg PO DAILY@0700 30 Days tab DS: Summary Hospital Course: NSTEMI Positive troponins of > 40. Patient denies any chest pain or shortness of breath. CXR unremarkable. Abnormal EKG with sinus rhythm with some subtle ST segment changes in 2, 3 and aVF. Cardiology consult appreciated. Echo with normal EF. -s/p cardiac cath with Multivessel coronary artery disease with no evidence of significant stent restenosis. Preserved left ventricular systolic function. -continue medical treatment per cardiology. Status post fall at home Patient lives alone, has Life Alert. Unsure of cause of fall. She did not lose consciousness. Carotid US unremarkable. -PT/OT. Rheumatoid arthritis/osteoarthritis Chronic. -continue on the prednisone and pain control as needed. Hypertension -will monitor. Leukocytosis-resolved. Suspect secondary to steroids. Hypokalemia/ Hypoglycemia resolved. - Time Spent with Patient Total time spent providing and/or coordinating discharge services: Less than 30 minutes Exam Vital signs: Vital Signs 03/06/18 08:00 03/06/18 09:00 03/06/18 09:02 Temperature Pulse Rate 82 82 Respiratory Rate 18 Blood Pressure Pulse Oximetry 96 03/06/18 10:00 03/06/18 11:00 03/06/18 12:00 Temperature 98 F Pulse Rate 76 80 80 Respiratory Rate 18 Blood Pressure 121/70 Pulse Oximetry 98 03/06/18 13:00 03/06/18 14:30 03/06/18 14:45 Temperature 98 F Pulse Rate 84 69 72 Respiratory Rate 18 20 Blood Pressure 120/57 L 117/64 Pulse Oximetry 98 96 03/06/18 15:00 03/06/18 15:15 03/06/18 15:45 Temperature Pulse Rate 68 71 76 Respiratory Rate 18 20 18 Blood Pressure 112/56 L 115/56 L 117/58 L Pulse Oximetry 95 94 L 96 03/06/18 16:00 03/06/18 16:15 03/06/18 16:45 Temperature Pulse Rate 75 76 76 Respiratory Rate 18 20 Blood Pressure 117/79 98/54 L Pulse Oximetry 95 96 03/06/18 17:00 03/06/18 17:15 03/06/18 18:00 Temperature Pulse Rate 70 80 75 Respiratory Rate Blood Pressure 108/56 L Pulse Oximetry 03/06/18 19:00 03/06/18 19:15 03/06/18 20:00 Temperature 97.8 F 97.8 F Pulse Rate 90 78 84 Respiratory Rate 20 20 Blood Pressure 107/53 L 107/53 L Pulse Oximetry 97 97 94 L 03/06/18 20:15 03/06/18 21:00 03/06/18 22:00 Temperature Pulse Rate 85 78 78 Respiratory Rate 18 Blood Pressure 109/67 Pulse Oximetry 93 L 03/06/18 23:00 03/07/18 00:00 03/07/18 01:00 Temperature 97.8 F Pulse Rate 60 90 68 Respiratory Rate 20 Blood Pressure 107/53 L Pulse Oximetry 97 03/07/18 02:00 03/07/18 03:00 03/07/18 04:00 Temperature 97.8 F Pulse Rate 68 77 68 Respiratory Rate 18 Blood Pressure 119/57 L Pulse Oximetry 97 03/07/18 05:00 03/07/18 06:00 Temperature Pulse Rate 72 77 Respiratory Rate Blood Pressure Pulse Oximetry Intake & Output 03/06/18 03/07/18 03/07/18 18:59 06:59 18:59 Intake Total 1325 / 1325 240 / 240 Output Total 800 / 800 800 / 800 Balance 525 / 525 -560 / -560 Weight 43.5 kg Intake: IV 1205 / 1205 Heparin/NS PF Inj 1,500 ML @ 0 5 / 5 mls/hr .ROUTE .STK-MED ONE Rx#: [id number] Heparin/D5W 25,000 U/250 mL 25, 200 / 200 000 unit In 250 ml @ Per Protocol IV.CONT TITRATE PRN Rx #:[id number] NS Inj 1,000 ML @ 50 mls/hr IV. 1000 / 1000 CONT .Q20[facility] [place] Rx#:[id number] Oral 120 / 120 240 / 240 Output: Urine 800 / 800 800 / 800 Other: # Voids 4 3 # Urine Diapers 2 Date of Last Bowel Movement 03/05/18 - Constitutional no acute distress - Routine Respiratory Exam Present: CTA bilaterally - Routine Cardiovascular Exam Present: RRR - Routine Abdominal Exam Present: soft - Routine Extremities Exam Comments: no pedal edema. - Routine Neurological Exam Present: alert, oriented X3 Results Procedures completed during hospitalization: cardiac cath. Labs on day of discharge: Labs from last 24 hours 03/07/18 03/07/18 03/07/18 06:14 04:42 04:22 WBC RBC Hgb Hct MCV MCH MCHC RDW Plt Count MPV Neut % (Auto) Lymph % (Auto) [place] % (Auto) Eos % (Auto) Baso % (Auto) Neut # (Auto) Lymph # (Auto) [place] # (Auto) Eos # (Auto) Baso # (Auto) WBC Differential Differential Comment APTT Sodium 141 Potassium 3.5 Chloride 109 H Carbon Dioxide 22.3 Anion Gap 10 BUN 10 Creatinine 0.50 Estimated GFR Greater than 89 POC Glucose 109 98 Random Glucose 98 Calcium 7.5 L 03/07/18 03/07/18 03/06/18 04:22 04:22 21:32 WBC 7.9 RBC 3.32 L Hgb 10.8 L Hct 31.7 L MCV 95.5 MCH 32.6 MCHC 34.2 RDW 15.1 Plt Count 172 MPV 7.4 Neut % (Auto) 82.3 H Lymph % (Auto) 8.6 L [place] % (Auto) 8.3 H Eos % (Auto) 0.6 Baso % (Auto) 0.2 Neut # (Auto) 6.5 Lymph # (Auto) 0.7 L [place] # (Auto) 0.7 Eos # (Auto) 0.0 Baso # (Auto) 0.0 WBC Differential . Differential Comment Auto diff final APTT 30.6 D Sodium Potassium Chloride Carbon Dioxide Anion Gap BUN Creatinine Estimated GFR POC Glucose 104 Random Glucose Calcium 03/06/18 18:32 WBC RBC Hgb Hct MCV MCH MCHC RDW Plt Count MPV Neut % (Auto) Lymph % (Auto) [place] % (Auto) Eos % (Auto) Baso % (Auto) Neut # (Auto) Lymph # (Auto) [place] # (Auto) Eos # (Auto) Baso # (Auto) WBC Differential Differential Comment APTT Sodium Potassium Chloride Carbon Dioxide Anion Gap BUN Creatinine Estimated GFR POC Glucose 93 Random Glucose Calcium - Impressions ITS Impressions Head CT 03/04/18 13:31 CONCLUSION: 1. Negative trauma study with no evidence of fracture or hemorrhage. 2. Moderate atrophic change again noted. . Lumbar Spine CT 03/04/18 13:31 CONCLUSION: 1. No acute fracture. 2. Grade 1 anterior spondylolisthesis of L5 on S1 of approximately 9 mm which appears chronic. 3. Diffuse moderate to severe degenerative disc changes. 4. Moderate rotatory scoliosis. Chest X-Ray 03/04/18 17:07 CONCLUSION: Rotated and underinflated examination without an acute abnormality identified given the technique. Carotid Doppler Study 03/04/18 17:40 CONCLUSION: 1. Right Internal Carotid Artery: Moderate visible plaque without hemodynamically significant stenosis. 2. Left Internal Carotid Artery: Moderate visible plaque without hemodynamically significant stenosis Discharge Plan - Discharge Disposition Patient Disposition: Disch W/Home Health Service - Discharge Condition Condition: Stable - Physicians Team Primary Care Provider: Evelia Castle Attending Provider: Kendall Reeder Other Providers: [employer] ; Bassem Joseph DO
[2018-03-07] MEDS: Folic Acid 1 MG Tablet PO SCH (10:38)
[2018-03-07] MEDS: predniSONE 5 MG Tablet PO SCH (10:38)
[2018-03-07] MEDS: Isosorbide Mononitrate 30 MG ER 24HR Tablet (Imdur) PO SCH (10:40)
[2018-03-07] MEDS: Latanoprost 0.005% Opth Drops 2.5 ML Bottle EACH EYE SCH (18:12)
[2018-03-08] MEDS: Isosorbide Mononitrate 30 MG ER 24HR Tablet (Imdur) PO SCH (06:39)
--- NOTE | 2018-03-08 07:31 | P.PNIM ---
Subjective Interval history: f/u; NSTEMI in no acute distress. denies chest pain or sob. had some diarrhea over night- no abdominal pain, nausea or vomiting. no fever. Physical Exam Vital signs: Vital Signs 03/07/18 09:00 03/07/18 10:00 03/07/18 11:00 Temperature 97.8 F Pulse Rate 77 79 82 Respiratory Rate 18 Blood Pressure 128/63 Pulse Oximetry 98 03/07/18 12:00 03/07/18 13:00 03/07/18 14:00 Temperature Pulse Rate 86 82 82 Respiratory Rate Blood Pressure Pulse Oximetry 03/07/18 15:00 03/07/18 16:00 03/07/18 17:00 Temperature 97.9 F Pulse Rate 86 74 84 Respiratory Rate 18 Blood Pressure 87/53 L Pulse Oximetry 96 03/07/18 18:00 03/07/18 19:00 03/07/18 20:00 Temperature 98.4 F Pulse Rate 93 H 95 H 80 Respiratory Rate 22 Blood Pressure 95/51 L Pulse Oximetry 94 L 94 L 03/07/18 21:00 03/07/18 22:00 03/07/18 23:00 Temperature 97.4 F L Pulse Rate 84 78 75 Respiratory Rate 20 Blood Pressure 94/55 L Pulse Oximetry 95 03/08/18 00:00 03/08/18 01:00 EDT 03/08/18 01:00 EST Temperature Pulse Rate 78 74 79 Respiratory Rate Blood Pressure Pulse Oximetry 03/08/18 02:00 03/08/18 03:00 03/08/18 04:00 Temperature 97.4 F L Pulse Rate 81 76 78 Respiratory Rate 20 Blood Pressure 109/52 L Pulse Oximetry 96 03/08/18 05:00 03/08/18 06:00 Temperature Pulse Rate 84 78 Respiratory Rate Blood Pressure Pulse Oximetry Intake & Output 03/07/18 03/08/18 03/08/18 19:59 06:59 18:59 Intake Total Output Total Balance Weight Intake: Oral Output: Urine Other: # Voids - Constitutional no acute distress - Routine Respiratory Exam Present: CTA bilaterally - Routine Cardiovascular Exam Present: RRR - Routine Abdominal Exam Present: soft - Routine Extremities Exam Comments: no pedal edema. - Routine Neurological Exam Present: alert, oriented X3 Results - Labs CBC & Chem 7: 03/07/18 04:22 03/07/18 04:22 Laboratory Results - last 24 hr 03/07/18 03/07/18 03/08/18 12:47 23:34 06:13 APTT 29.4 POC Glucose 123 H 92 03/08/18 06:37 APTT POC Glucose 77 - Procedures cardiac cath. Assessment and Plan - Plan NSTEMI Positive troponins of > 40. Patient denies any chest pain or shortness of breath. CXR unremarkable. Abnormal EKG with sinus rhythm with some subtle ST segment changes in 2, 3 and aVF. Cardiology consult appreciated. Echo with normal EF. -s/p cardiac cath with Multivessel coronary artery disease with no evidence of significant stent restenosis. Preserved left ventricular systolic function. -continue medical treatment per cardiology. Status post fall at home Patient lives alone, has Life Alert. Unsure of cause of fall. She did not lose consciousness. Carotid US unremarkable. -PT/OT. Diarrhea - check the stool for c-diff- Rheumatoid arthritis/osteoarthritis Chronic. -continue on the prednisone and pain control as needed. Hypertension -will monitor. Leukocytosis-resolved. Suspect secondary to steroids. Hypokalemia/ Hypoglycemia Likely s/t decreased PO intake. - D5 1/2 NS and monitor on hold. Discharge Planning: rehab was offered but the patient declined. dc home with [facility] when cleared by cardiology and when diarrhea is better- pending c-diff.
[2018-03-08] MEDS: Folic Acid 1 MG Tablet PO SCH (10:17)
[2018-03-08] MEDS: predniSONE 5 MG Tablet PO SCH (10:18)
[2018-03-08] MEDS: Latanoprost 0.005% Opth Drops 2.5 ML Bottle EACH EYE SCH (17:26)
--- NOTE | 2018-03-09 07:42 | P.PNIM ---
Subjective Interval history: f/u; NSTEMI in no acute distress. no chest pain or sob. diarrhea has resolved. d/w the RN and no acute issues over night. Physical Exam Vital signs: Vital Signs 03/08/18 08:00 03/08/18 09:00 03/08/18 10:00 Temperature Pulse Rate 72 74 88 Respiratory Rate Blood Pressure Pulse Oximetry 94 L 03/08/18 11:00 03/08/18 12:00 03/08/18 13:00 Temperature 98.2 F Pulse Rate 84 84 86 Respiratory Rate 18 Blood Pressure 95/62 L Pulse Oximetry 96 03/08/18 14:00 03/08/18 15:00 03/08/18 16:00 Temperature 98.4 F Pulse Rate 82 85 88 Respiratory Rate 16 Blood Pressure 94/51 L Pulse Oximetry 94 L 03/08/18 17:00 03/08/18 18:00 03/08/18 19:00 Temperature 97.8 F Pulse Rate 91 H 86 84 Respiratory Rate 18 Blood Pressure 90/51 L Pulse Oximetry 95 03/08/18 20:00 03/08/18 21:00 03/08/18 22:00 Temperature Pulse Rate 68 78 68 Respiratory Rate Blood Pressure Pulse Oximetry 95 03/08/18 23:00 03/09/18 00:00 03/09/18 01:00 Temperature 98.5 F Pulse Rate 68 66 70 Respiratory Rate 16 Blood Pressure 99/50 L Pulse Oximetry 96 03/09/18 02:00 03/09/18 03:00 03/09/18 04:00 Temperature 97.4 F L Pulse Rate 66 85 66 Respiratory Rate 16 Blood Pressure 109/55 L Pulse Oximetry 97 03/09/18 05:00 03/09/18 06:00 Temperature Pulse Rate 66 74 Respiratory Rate Blood Pressure Pulse Oximetry Intake & Output 03/08/18 03/09/18 03/09/18 18:59 06:59 18:59 Intake Total 840 / 840 240 / 240 Output Total 600 / 600 1000 / 1000 Balance 240 / 240 -760 / -760 Weight 42.5 kg Intake: Oral 840 / 840 240 / 240 Output: Urine 600 / 600 1000 / 1000 Other: # Voids 4 Date of Last Bowel Movement 03/08/18 03/08/18 # Bowel Movements 1 - Constitutional no acute distress - Routine Respiratory Exam Present: CTA bilaterally - Routine Cardiovascular Exam Present: RRR - Routine Abdominal Exam Present: soft - Routine Extremities Exam Comments: no pedal edema. - Routine Neurological Exam Present: alert, oriented X3 Results - Labs CBC & Chem 7: 03/07/18 04:22 03/07/18 04:22 Laboratory Results - last 24 hr 03/08/18 03/08/18 03/08/18 12:08 12:32 12:54 APTT POC Glucose 69 76 86 03/08/18 03/08/18 03/09/18 13:15 17:48 03:37 APTT POC Glucose 99 216 H 96 03/09/18 03/09/18 04:14 07:36 APTT 28.9 POC Glucose 104 - Procedures cardiac cath. Assessment and Plan - Plan NSTEMI Positive troponins of > 40. Patient denies any chest pain or shortness of breath. CXR unremarkable. Abnormal EKG with sinus rhythm with some subtle ST segment changes in 2, 3 and aVF. Cardiology consult appreciated. Echo with normal EF. -s/p cardiac cath with Multivessel coronary artery disease with no evidence of significant stent restenosis. Preserved left ventricular systolic function. -continue medical treatment per cardiology. Status post fall at home Patient lives alone, has Life Alert. Unsure of cause of fall. She did not lose consciousness. Carotid US unremarkable. -PT/OT. Diarrhea - resolved. Rheumatoid arthritis/osteoarthritis Chronic. -continue on the prednisone and pain control as needed. Hypertension -will monitor. Leukocytosis-resolved. Suspect secondary to steroids. Hypokalemia/ Hypoglycemia Likely s/t decreased PO intake. - D5 1/2 NS and monitor on hold. Discharge Planning: d/w the patient again about rehab; now she has decided to go to rehab. case management consulted. ok for discharge when arrangements made. see med list. f/u with pcp and cardiology.
[2018-03-09] MEDS: Isosorbide Mononitrate 30 MG ER 24HR Tablet (Imdur) PO SCH (10:07)
[2018-03-09] MEDS: predniSONE 5 MG Tablet PO SCH (10:07)
[2018-03-09] MEDS: Folic Acid 1 MG Tablet PO SCH (10:07)
--- NOTE | 2018-03-09 14:06 | P.PNCA ---
Subjective Interval history: Patient denies any CP, pressure, palpitations, dizziness, edema or SOB. Patient states that she is feeling good and is ready to go to rehab. Medications and Allergies Allergies Allergy/AdvReac Type Severity Reaction Status Date / Time No Known Allergies Allergy Verified 03/04/18 12:15 Home Medications Medication Instructions Recorded Confirmed Type acetaminophen [Tylenol Extra 500 mg PO BID 03/04/18 03/04/18 History Strength] aspirin 81 mg PO DAILY 03/04/18 03/04/18 History celecoxib 200 mg PO DAILY 03/04/18 03/04/18 History folic acid 1 mg PO DAILY 03/04/18 03/04/18 History latanoprost 1 drp OPHTHALMIC (EYE) QPM 03/04/18 03/04/18 History nitroglycerin [Nitrostat] 0.4 mg SUBLINGUAL Q5-15M PRN 03/04/18 03/04/18 History prednisone 5 mg PO DAILY 03/04/18 03/04/18 History rabeprazole 20 mg PO EVERY OTHER DAY 03/04/18 03/04/18 History methotrexate (PF) 25 mg SUBCUT QWEEK 03/09/18 03/09/18 History Physical Exam Vital signs: Vital Signs 03/08/18 14:00 03/08/18 15:00 03/08/18 16:00 Temperature 98.4 F Pulse Rate 82 85 88 Respiratory Rate 16 Blood Pressure 94/51 L Pulse Oximetry 94 L 03/08/18 17:00 03/08/18 18:00 03/08/18 19:00 Temperature 97.8 F Pulse Rate 91 H 86 84 Respiratory Rate 18 Blood Pressure 90/51 L Pulse Oximetry 95 03/08/18 20:00 03/08/18 21:00 03/08/18 22:00 Temperature Pulse Rate 68 78 68 Respiratory Rate Blood Pressure Pulse Oximetry 95 03/08/18 23:00 03/09/18 00:00 03/09/18 01:00 Temperature 98.5 F Pulse Rate 68 66 70 Respiratory Rate 16 Blood Pressure 99/50 L Pulse Oximetry 96 03/09/18 02:00 03/09/18 03:00 03/09/18 04:00 Temperature 97.4 F L Pulse Rate 66 85 66 Respiratory Rate 16 Blood Pressure 109/55 L Pulse Oximetry 97 03/09/18 05:00 03/09/18 06:00 03/09/18 07:00 Temperature 97.6 F Pulse Rate 66 74 73 Respiratory Rate 18 Blood Pressure 138/63 Pulse Oximetry 94 L 03/09/18 08:00 03/09/18 09:00 03/09/18 10:00 Temperature Pulse Rate 88 88 86 Respiratory Rate Blood Pressure Pulse Oximetry 94 L 03/09/18 11:00 Temperature Pulse Rate 84 Respiratory Rate Blood Pressure Pulse Oximetry Intake & Output 03/08/18 03/09/18 03/09/18 18:59 06:59 18:59 Intake Total 840 / 840 240 / 240 Output Total 600 / 600 1000 / 1000 Balance 240 / 240 -760 / -760 Weight 42.5 kg Intake: Oral 840 / 840 240 / 240 Output: Urine 600 / 600 1000 / 1000 Other: # Voids 4 Date of Last Bowel Movement 03/08/18 03/08/18 03/08/18 # Bowel Movements 1 - Constitutional no acute distress - Routine HEENT Exam Head: Present: normocephalic Eye: Present: PERRL ENT: Present: mucous membranes moist - Routine Neck Exam Present: full ROM - Routine Respiratory Exam Present: CTA bilaterally - Routine Cardiovascular Exam Present: S1, S2. Absent: murmur, gallop, rubs - Routine Abdominal Exam Present: normoactive bowel sounds - Routine Extremities Exam Present: full ROM, pulses intact, normal capillary refill. Absent: cyanosis, clubbing, edema - Routine Skin Exam Present: intact - Routine Neurological Exam Present: oriented X3 - Detailed Neurological Exam: Coma Scale Eye Opening: Spontaneous Verbal Response: Oriented Motor Response: Obey commands [place] Coma Scale Total: 15 - Routine Psychiatric Exam Present: normal affect Results 03/07/18 04:22 03/07/18 04:22 Coagulation 03/08/18 03/09/18 Range/Units 06:13 04:14 APTT 29.4 28.9 (23.4-31.7) sec Intake and Output 03/08/18 03/09/18 03/09/18 22:59 06:59 14:59 Intake Total 840 / 840 240 / 240 Output Total 600 / 600 1000 / 1000 Balance 240 / 240 -760 / -760 Intake: Oral 840 / 840 240 / 240 Output: Urine 600 / 600 1000 / 1000 Other: # Voids 4 Date of Last Bowel Movement 03/08/18 03/08/18 03/08/18 # Bowel Movements 1 Weight 42.5 kg Assessment and Plan - Assessment (1) Non-ST elevation SD (NSTEMI) Code(s): I21.4 - Non-ST elevation (NSTEMI) myocardial infarction Status: Acute (2) Falls frequently Code(s): R29.6 - Repeated falls Status: Acute - Plan Patient had cardiac cath on 03-06-2018 which showed patent stents in the LAD and RCA, moderate disease in the posterior descending branch and total occlusion of the distal circumflex and third marginal branch which fills by collaterals. EF 55%. We recommend medical management including aggressive modification of cardiac risk factors and post SD management. Patient is cleared for discharge to rehab from a cardiac standpoint. She will follow-up with Dr. Solano after discharge from the rehabilitation. Patient was seen and evaluated by Dr. Sánchez who participated in care, management and decision-making. - Attending Attestation Patient seen and examined. I reviewed and agree with the evaluation and plan as presented. She remains stable from cardiac standpoint. DC to rehab. F/u w Dr. Solano as outpatient.
== END 2018-03-09 12:25 ==
LOC: NEPE 11:42 → NEDA 17:36 → NEDH 03-05 03:09 → HCPC 03-05 06:14
PROVIDERS: ADMIT Internal Medicine; ATTEND Internal Medicine

== ENCOUNTER 2018-06-18 15:42 | Inpatient (IN) ==
[2018-06-18] MEDS ORDERED: Sod Chloride 0.9% Inj 1,000 ML IV.SIG SCH (16:45)
--- NOTE | 2018-06-18 16:48 | ED ---
HPI General Chief complaint: Urogenital-Female Stated complaint: possible UTI Time Seen by Provider: 06/18/18 16:18 Source: patient and family Mode of arrival: EMS Limitations: no limitations History of Present Illness MD Complaint: Reports generalized weakness Onset (ago): day(s) (5) Duration: constant and progressively worsening Location: Reports generalized Severity: severe Relieving factors: none Exacerbating factors: none Associated symptoms: Reports loss of appetite and other (Foul-smelling urine) Related Data Home Medications Medication Instructions Recorded Confirmed acetaminophen [Tylenol Extra 500 mg PO BID 03/04/18 06/18/18 Strength] aspirin 81 mg PO DAILY 03/04/18 06/18/18 celecoxib 200 mg PO DAILY 03/04/18 06/18/18 folic acid 1 mg PO DAILY 03/04/18 06/18/18 latanoprost 1 drp OPHTHALMIC (EYE) QPM 03/04/18 06/18/18 nitroglycerin [Nitrostat] 0.4 mg SUBLINGUAL Q5-15M PRN 03/04/18 06/18/18 prednisone 5 mg PO DAILY 03/04/18 06/18/18 rabeprazole 20 mg PO EVERY OTHER DAY 03/04/18 06/18/18 methotrexate (PF) 25 mg SUBCUT QWEEK 03/09/18 06/18/18 carvedilol 12.5 mg PO BID 06/18/18 06/18/18 clopidogrel [Plavix] 75 mg PO DAILY 06/18/18 06/18/18 triamterene 50 mg PO DAILY 06/18/18 06/18/18 Allergies Allergy/AdvReac Type Severity Reaction Status Date / Time No Known Allergies Allergy Verified 06/18/18 15:47 Review of Systems ROS: all other systems reviewed are negative Constitutional Denies fever(s), Reports lethargy, Reports poor appetite and Reports weakness Genitourinary Reports urinary frequency [facility] Medical History Medical History Arthritis (Acute) Chronic back pain (Acute) GERD (gastroesophageal reflux disease) (Acute) Glaucoma (Acute) HTN (hypertension) (Acute) High cholesterol (Acute) Osteoarthritis (Acute) Presence of stent in coronary artery in patient with coronary artery disease ( Acute) Rheumatoid arthritis (Acute) Surgical History Surgical History Presence of stent in coronary artery (Acute) Family History Family History Other Family history of hypertension Social History Social History Substance History: No History of Abuse Second Hand Smoke Exposure: No Smoking Status: Never smoker How Often Do You Have a Drink Containing Alcohol: Never Hx Recent Travel: No Recent Travel in [facility] within the Last 8 Weeks: No Recent Out of Country Travel within the Last 8 Weeks: No Immunization History Tetanus Immunization: Unsure Exam Const General: cooperative, comfortable, no acute distress, well developed, frail appearing and other Orientation: alert, awake and oriented x3 HENMT Head: normal to inspection, normocephalic and atraumatic Mouth: moist mucous membranes abnormal (Mucous membranes are dry) Eyes Alignment and Position: alignment normal and position abnormal Conjunctivae: conjunctivae normal Sclera: sclerae normal EOM: EOM intact bilaterally Neck Neck: normal visual inspection and full ROM Chest Chest: normal inspection of the chest Resp Effort & Inspection: normal respiratory effort and able to speak in complete sentences Auscultation: clear to auscultation bilaterally Cardio Rate: regular rate Rhythm: regular rhythm GI Inspection: normal to inspection Palpation: soft and tender suprapubicly Back/Spine/Pelvis Cervical Spine: cervical ROM normal Thoracic/Lumbar Spine: thoraco-lumbar ROM normal Skin General: no rashes or lesions noted, turgor normal, dry skin, ecchymosis (She has some ecchymosis on the right forearm and the dorsal right foot) and pallor Neuro General: alert, awake, oriented x3, moves all extremities and CN's II-XI intact bilaterally Extrem General: normal to inspection and full ROM Psych Appearance: grossly normal Mental Status: mental status grossly normal Speech and Movement: speech and movement normal Mood: congruent mood Affect: normal affect Attitude: cooperative Thought Process: normal Thought Content: normal Judgment: judgment good Course Initial Documented Vital Signs Temperature 97.6 F 06/18/18 15:45 Pulse Rate 99 H 06/18/18 15:45 Respiratory Rate 20 06/18/18 15:45 Blood Pressure 112/57 L 06/18/18 15:45 Pulse Oximetry 97 06/18/18 15:45 Last Documented Vital Signs Temperature 97.6 F 06/18/18 15:45 Pulse Rate 60 06/18/18 18:17 Respiratory Rate 20 06/18/18 18:17 Blood Pressure 86/46 L 06/18/18 18:17 Pulse Oximetry 99 06/18/18 16:35 Medical Decision Making MDM Narrative Medical decision making narrative: This patient is brought in by her daughter with a chief complaint of foul-smelling urine. She also has frequency of urination. The daughter also states that the patient has become so weak that she cannot stand on her own. The symptoms have become progressively worse over the past 5 days. Daughter believes that the patient needs to go to a group home or into hospice. The patient is agreeable to group home placement. She has become so weak that her family is unable to care for her at home. The daughter reports that she lived independently until about a week ago. She went into assisted living at that time. There was some problem with assisted living so she left there and moved in with 1 of her daughters. On exam, this patient looks ill and frail. She is extremely pale. Mucous membranes are dry. She meets sepsis criteria. She has been empirically treated for UTI with Rocephin. Medical Screen Exam Complete: Yes Emergency Medical Condition: Yes Differential Diagnosis Differential Diagnosis: Differential diagnosis of urinary symptoms includes but is not limited to UTI, kidney stone, pyelonephritis, bacterial vaginosis, yeast infection, urinary retention Differential diagnosis of weakness includes but is not limited to infection, CVA , electrolyte disturbance, renal failure, hypoglycemia Lab Data Lab results reviewed: Yes I reviewed the patient's lab results. Result diagrams: 06/18/18 17:00 06/18/18 17:00 Lab Results 06/18/18 06/18/18 06/18/18 Range/Units 17:00 17:00 17:00 CBC w Diff Auto diff final WBC 10.1 (4.0-11.0) th/mm3 RBC 3.31 L (4.00-5.30) mil/mm3 Hgb 10.5 L (11.6-15.3) gm/dL Hct 31.6 L (35.0-46.0) % MCV 95.5 (80.0-100.0) fL MCH 31.8 (27.0-34.0) pg MCHC 33.3 (32.0-36.0) % RDW 16.4 (11.6-17.2) % Plt Count 308 (150-450) th/mm3 MPV 7.5 (7.0-11.0) fL Neut % (Auto) 67.9 (16.0-70.0) % Lymph % (Auto) 28.9 (9.0-44.0) % [place] % (Auto) 2.4 (0.0-8.0) % Eos % (Auto) 0.2 (0.0-4.0) % Baso % (Auto) 0.6 (0.0-2.0) % Neut # (Auto) 6.9 (1.8-7.7) th/mm3 Lymph # (Auto) 2.9 (1.0-4.8) th/mm3 Custer # (Auto) 0.2 (0.0-0.9) th/mm3 Eos # (Auto) 0.0 (0.0-0.4) th/mm3 Baso # (Auto) 0.1 (0.0-0.2) th/mm3 WBC Differential . Differential Comment . Sodium 132 L (136-145) meq/L Potassium 3.8 (3.5-5.1) meq/L Chloride 97 L (98-107) meq/L Carbon Dioxide 27.3 (21.0-32.0) meq/L Anion Gap 8 (5-15) meq/L BUN 36 H (7-18) mg/dL Creatinine 0.74 (0.50-1.00) mg/dL Estimated GFR 74 L (>89) mL/min Random Glucose 175 H (74-106) mg/dL Lactic Acid 2.3 H (0.4-2.0) mmol/L Calcium 9.1 (8.5-10.1) mg/dL Magnesium 2.1 (1.5-2.5) mg/dL Total Bilirubin 0.8 (0.2-1.0) mg/dL AST 79 H (15-37) U/L ALT 92 H (10-53) U/L Alkaline Phosphatase 74 (45-117) U/L Troponin I 0.03 (0.02-0.05) ng/mL Total Protein 6.1 L (6.4-8.2) g/dL Albumin 2.7 L (3.4-5.0) g/dL Ur Collection Type Urine Color (Yellw/Straw) Urine Clarity (Clear) Urine pH (5.0-8.5) Ur Specific [place] (1.002-1.035) Urine Protein (Neg-Trace) mg/dL Urine Glucose (UA) (Negative) mg/dL Urine Ketones (Negative) mg/dL Urine Occult Blood (Negative) Urine Nitrate (Negative) Urine Bilirubin (Negative) Urine Urobilinogen (Less than 2) mg/dL Ur Leukocyte Esterase (Negative) Urine WBC (0-5) /hpf Urine Bacteria (None) /hpf Micro UA Comment Ur Microscopic Review Urine Culture Comments 06/18/18 Range/Units 17:10 CBC w Diff WBC (4.0-11.0) th/mm3 RBC (4.00-5.30) mil/mm3 Hgb (11.6-15.3) gm/dL Hct (35.0-46.0) % MCV (80.0-100.0) fL MCH (27.0-34.0) pg MCHC (32.0-36.0) % RDW (11.6-17.2) % Plt Count (150-450) th/mm3 MPV (7.0-11.0) fL Neut % (Auto) (16.0-70.0) % Lymph % (Auto) (9.0-44.0) % [place] % (Auto) (0.0-8.0) % Eos % (Auto) (0.0-4.0) % Baso % (Auto) (0.0-2.0) % Neut # (Auto) (1.8-7.7) th/mm3 Lymph # (Auto) (1.0-4.8) th/mm3 [place] # (Auto) (0.0-0.9) th/mm3 Eos # (Auto) (0.0-0.4) th/mm3 Baso # (Auto) (0.0-0.2) th/mm3 WBC Differential Differential Comment Sodium (136-145) meq/L Potassium (3.5-5.1) meq/L Chloride (98-107) meq/L Carbon Dioxide (21.0-32.0) meq/L Anion Gap (5-15) meq/L BUN (7-18) mg/dL Creatinine (0.50-1.00) mg/dL Estimated GFR (>89) mL/min Random Glucose (74-106) mg/dL Lactic Acid (0.4-2.0) mmol/L Calcium (8.5-10.1) mg/dL Magnesium (1.5-2.5) mg/dL Total Bilirubin (0.2-1.0) mg/dL AST (15-37) U/L ALT (10-53) U/L Alkaline Phosphatase (45-117) U/L Troponin I (0.02-0.05) ng/mL Total Protein (6.4-8.2) g/dL Albumin (3.4-5.0) g/dL Ur Collection Type Cath Urine Color Straw (Yellw/Straw) Urine Clarity Slightly cloudy (Clear) Urine pH 8.0 (5.0-8.5) Ur Specific [place] 1.010 (1.002-1.035) Urine Protein 30 H (Neg-Trace) mg/dL Urine Glucose (UA) Negative (Negative) mg/dL Urine Ketones Negative (Negative) mg/dL Urine Occult Blood Small H (Negative) Urine Nitrate Negative (Negative) Urine Bilirubin Negative (Negative) Urine Urobilinogen 0.2 (Less than 2) mg/dL Ur Leukocyte Esterase Trace H (Negative) Urine WBC 0-5 (0-5) /hpf Urine Bacteria Many H (None) /hpf Micro UA Comment Culture indicated Ur Microscopic Review Microscopic reviewed Urine Culture Comments Culture indicated Imaging Data Radiologist's impression: Chest X-Ray 06/18/18 16:35 CONCLUSION: 1. Abnormal opacity remains at the left lung base which is most characteristic of scarring. 2. No definite new infiltrates are identified. ECG Data EKG Prior to Arrival: No Attestation: I personally reviewed and interpreted this ECG as follows: Discharge Plan Discharge Disposition Patient Disposition: ED Admit(ED Internal Use Only) Discharge Order Discharge Orders: ED Use Only Admit Order (Routine); Ordered 06/18/18 Ordered By: Zoë Birch Discharge Details Diagnosis: Sepsis, Acute UTI Physicians Team ED Provider: Zoë Birch Primary Care Provider: Aleksandr Chan Rxs /Orders / Referrals /Forms Prescriptions: No Action celecoxib 200 mg Capsule 200 mg PO DAILY RF: 0 latanoprost 0.005 % Drops 1 drp OPHTHALMIC (EYE) QPM RF: 0 rabeprazole 20 mg Tablet,Delayed Release (Dr/Ec) 20 mg PO EVERY OTHER DAY RF: 0 prednisone 5 mg Tablet 5 mg PO DAILY RF: 0 acetaminophen [Tylenol Extra Strength] 500 mg Tablet 500 mg PO BID RF: 0 nitroglycerin [Nitrostat] 0.4 mg Tablet, Sublingual 0.4 mg SUBLINGUAL Q5-15M PRN (Reason: Chest Pain) RF: 0 aspirin 81 mg Tablet,Chewable 81 mg PO DAILY RF: 0 folic acid 1 mg Tablet 1 mg PO DAILY RF: 0 methotrexate (PF) 25 mg/0.4 mL Auto-Injector 25 mg SUBCUT QWEEK RF: 0 carvedilol 12.5 mg Tablet 12.5 mg PO BID RF: 0 clopidogrel [Plavix] 75 mg Tablet 75 mg PO DAILY RF: 0 triamterene 50 mg Capsule 50 mg PO DAILY RF: 0 Status ED Status: Pending Admission
--- NOTE | 2018-06-18 17:11 | XR ---
EXAM DATE: 06/18/2018 5:00 PM EST AGE/SEX: 87 years / Female INDICATIONS: Fever with possible UTI. CLINICAL DATA: This is the patient's initial encounter. Patient reports that signs and symptoms have been present for 2 days and indicates a pain score of 0/10. MEDICAL/SURGICAL HISTORY: Hypertension. . Cardiac stent. [place] [facility] [place] [facility] [place] [facility] [place]. . FINDINGS: A single AP portable semierect view of the chest was obtained. The patient is mildly rotated to the l eft. 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 Abnormal opacity remains at the left lung base with blunting of the costophrenic angle. This appears stable. The right lung is clear. The heart size is at the upper castillo its of normal with atherosclerotic changes again noted in the aorta. There are tracheal calcification s. The bony thorax is otherwise stable with diffuse osteopenia. CONCLUSION: 1. Abnormal opacity remains at the left lung base which is most characteristic of scarring. 2. No definite new infiltrates are identified. Electronically signed by: Seth Nicolas MD Board Certified Radiologist 06/18/2018 5:10 PM EST
[2018-06-18 17:13] LABS: Baso # (Auto) 0.1 th/mm3 (0.0-0.2); Baso % (Auto) 0.6 % (0.0-2.0); Eos % (Auto) 0.2 % (0.0-4.0); Hematocrit 31.6 % (35.0-46.0); Hemoglobin 10.5 gm/dL (11.6-15.3); Lymph # (Auto) 2.9 th/mm3 (1.0-4.8); Lymph % (Auto) 28.9 % (9.0-44.0); Mean Corpuscular HGB Conc 33.3 % (32.0-36.0); Mean Corpuscular Hemoglobin 31.8 pg (27.0-34.0); Mean Corpuscular Volume 95.5 fL (80.0-100.0); Mean Platelet Volume 7.5 fL (7.0-11.0); Mono # (Auto) 0.2 th/mm3 (0.0-0.9); Mono % (Auto) 2.4 % (0.0-8.0); Neut # (Auto) 6.9 th/mm3 (1.8-7.7); Neut % (Auto) 67.9 % (16.0-70.0); Platelet Count 308 th/mm3 (150-450); Red Blood Count 3.31 mil/mm3 (4.00-5.30); Red Cell Distribution Width 16.4 % (11.6-17.2); White Blood Count 10.1 th/mm3 (4.0-11.0)
[2018-06-18 17:24] LABS: Chloride 97 meq/L (98-107); Potassium 3.8 meq/L (3.5-5.1); Sodium 132 meq/L (136-145)
[2018-06-18 17:28] LABS: Albumin 2.7 g/dL (3.4-5.0); Anion Gap 8 meq/L (5-15); Blood Urea Nitrogen 36 mg/dL (7-18); Calcium 9.1 mg/dL (8.5-10.1); Carbon Dioxide 27.3 meq/L (21.0-32.0); Glucose,Random 175 mg/dL (74-106); Magnesium 2.1 mg/dL (1.5-2.5)
[2018-06-18 17:31] LABS: Alanine Aminotransferase 92 U/L (10-53)
[2018-06-18 17:32] LABS: Aspartate Aminotransferase 79 U/L (15-37); Glomerular Filtration Rate 74 mL/min (>89)
[2018-06-18 17:33] LABS: Total Protein 6.1 g/dL (6.4-8.2)
[2018-06-18 17:33] LABS: Bilirubin,Urine Negative (Negative); Clarity,Urine Slightly Cloudy (Clear); Glucose,Urine (UA) Negative (Negative); Leukocyte Esterase,Urine Trace (Negative); Nitrite,Urine Negative (Negative); Urobilinogen,Urine 0.2 mg/dL (Less than 2)
[2018-06-18 17:34] LABS: Alkaline Phosphatase 74 U/L (45-117)
[2018-06-18 17:37] LABS: Troponin I 0.03 ng/mL (0.02-0.05)
[2018-06-18 17:37] LABS: Color,Urine Straw (Yellw/Straw)
[2018-06-18 17:46] LABS: Bacteria,Urine Many /hpf; WBC,Urine 0-5 /hpf (0-5)
[2018-06-18] MEDS ORDERED: Acetaminophen 325 MG Tablet PO PRN (18:26)
[2018-06-18] MEDS: Sod Chloride 0.9% Inj 1,000 ML IV.CONT SCH (19:14)
[2018-06-18] MEDS: Heparin - SQ 10,000 UNITS/ML Vial SQ SCH (22:57)
[2018-06-19] MEDS: Sod Chloride 0.9% Inj 1,000 ML IV.CONT SCH (04:56)
[2018-06-19 06:50] LABS: Baso # (Auto) 0.1 th/mm3 (0.0-0.2); Baso % (Auto) 0.9 % (0.0-2.0); Eos # (Auto) 0.1 th/mm3 (0.0-0.4); Eos % (Auto) 1.3 % (0.0-4.0); Hematocrit 26.8 % (35.0-46.0); Hemoglobin 8.9 gm/dL (11.6-15.3); Lymph # (Auto) 1.9 th/mm3 (1.0-4.8); Lymph % (Auto) 25.7 % (9.0-44.0); Mean Corpuscular HGB Conc 33.1 % (32.0-36.0); Mean Corpuscular Hemoglobin 31.3 pg (27.0-34.0); Mean Corpuscular Volume 94.5 fL (80.0-100.0); Mean Platelet Volume 7.4 fL (7.0-11.0); Mono # (Auto) 0.1 th/mm3 (0.0-0.9); Mono % (Auto) 1.2 % (0.0-8.0); Neut # (Auto) 5.1 th/mm3 (1.8-7.7); Neut % (Auto) 70.9 % (16.0-70.0); Platelet Count 230 th/mm3 (150-450); Red Blood Count 2.84 mil/mm3 (4.00-5.30); Red Cell Distribution Width 16.1 % (11.6-17.2); White Blood Count 7.3 th/mm3 (4.0-11.0)
[2018-06-19 07:14] LABS: Alanine Aminotransferase 73 U/L (10-53); Albumin 2.3 g/dL (3.4-5.0); Alkaline Phosphatase 59 U/L (45-117); Anion Gap 6 meq/L (5-15); Aspartate Aminotransferase 64 U/L (15-37); Blood Urea Nitrogen 23 mg/dL (7-18); Calcium 8.2 mg/dL (8.5-10.1); Carbon Dioxide 26.6 meq/L (21.0-32.0); Chloride 105 meq/L (98-107); Glomerular Filtration Rate Greater Than 89 mL/min (>89); Glucose,Random 90 mg/dL (74-106); Sodium 138 meq/L (136-145)
[2018-06-19 07:17] LABS: Potassium 2.9 meq/L (3.5-5.1)
[2018-06-19] MEDS: Lactobacillus Acidophilus/L. Spores Tablet PO SCH ×3 (08:18→17:12)
[2018-06-19] MEDS: Heparin - SQ 10,000 UNITS/ML Vial SQ SCH ×2 (08:18→20:58)
--- NOTE | 2018-06-19 11:05 | P.HPIM ---
History of Present Illness Primary Care Physician: Aleksandr Chan MD Chief Complaint: Weakness History of Present Illness: Mrs. Lee is an 87-year-old female. She came into the emergency department secondary to weakness. Weakness is found to be related to a urinary tract infection. Findings at time of admit for acute kidney injury, hyponatremia, weakness, lactic acidosis, and hypotension. Sepsis criteria is qualified by her degree of lactic acidosis and hypotension coupled with found urinary tract infection. Overnight, since time of admit she has had improvement with resolution of her kidney injury normalization of her sodium and improve blood pressures. She still feels weak. Inpatient Certification Inpatient Certification: I certify that the inpatient services were ordered in accordance with Medicare regulations governing the order. This includes certification that hospital inpatient services are reasonable and necessary and in the case of services not specified as inpatient-only under 42 CFR 419.22(n), that they are appropriately provided as inpatient services in accordance to with the 2-midnight benchmark under 43 CFR 412.3(e) Estimated Total Length of Stay (Days): 3 Plans for Post Hospital Care: Not yet determined Review of Systems Constitutional: No fevers, no chills no night sweats, no fatigue, weakness Eyes: No eye pain, no blurry vision, no loss of vision ENT: No sore throat, no ear pain, no rhinorrhea Cardiovascular: No chest pain, no tachycardia, no palpitations, no syncope Respiratory: No wheezing, no cough, no shortness of breath Gastrointestinal: No abdominal pain, no black tarry stools, no bright red blood per rectum, no vomiting, no diarrhea Musculoskeletal: No joint pain, no muscle cramps, no stiffness Integumentary: No rash, no ulcers, no drainage Neurologic: No sensory loss, no loss of motor function, no dizziness Psychiatric: No behavioral changes, no hallucinations, no suicidal ideations COUNTS INCLUDE 234 BEDS AT THE [facility] Medical History Medical History Arthritis (Acute) Chronic back pain (Acute) GERD (gastroesophageal reflux disease) (Acute) Glaucoma (Acute) HTN (hypertension) (Acute) High cholesterol (Acute) Osteoarthritis (Acute) Presence of stent in coronary artery in patient with coronary artery disease ( Acute) Rheumatoid arthritis (Acute) Surgical History Surgical History Presence of stent in coronary artery (Acute) Family History Family History Other Family history of hypertension Osteoarthritis Social History Social History Substance History: No History of Abuse Second Hand Smoke Exposure: No Smoking Status: Refused to answer How Often Do You Have a Drink Containing Alcohol: Unable to Obtain Hx Recent Travel: No Recent Travel in [facility] within the Last 8 Weeks: No Recent Out of Country Travel within the Last 8 Weeks: No Immunization History Tetanus Immunization: Unsure Hx Influenza Vaccine This Season: Yes Medications and Allergies Allergies Allergy/AdvReac Type Severity Reaction Status Date / Time No Known Allergies Allergy Verified 06/18/18 15:47 Home Medications Medication Instructions Recorded Confirmed Type acetaminophen [Tylenol Extra 500 mg PO BID 03/04/18 06/18/18 History Strength] aspirin 81 mg PO DAILY 03/04/18 06/18/18 History celecoxib 200 mg PO DAILY 03/04/18 06/18/18 History folic acid 1 mg PO DAILY 03/04/18 06/18/18 History latanoprost 1 drp OPHTHALMIC (EYE) QPM 03/04/18 06/18/18 History nitroglycerin [Nitrostat] 0.4 mg SUBLINGUAL Q5-15M PRN 03/04/18 06/18/18 History prednisone 5 mg PO DAILY 03/04/18 06/18/18 History rabeprazole 20 mg PO EVERY OTHER DAY 03/04/18 06/18/18 History methotrexate (PF) 25 mg SUBCUT QWEEK 03/09/18 06/18/18 History carvedilol 12.5 mg PO BID 06/18/18 06/18/18 History clopidogrel [Plavix] 75 mg PO DAILY 06/18/18 06/18/18 History triamterene 50 mg PO DAILY 06/18/18 06/18/18 History Active Medications: Active Medications Acetaminophen (Tylenol) 650 mg PO Q4H PRN PRN Reason: Temp > 100.4 Al Hydroxide/Mg Hydroxide (Milk Of Magnesia Liq) 30 ml PO Q12H PRN PRN Reason: Mild Constipation Heparin Sodium (Porcine) (Heparin Inj) 5,000 units SQ Q12H [facility] Last Admin: 06/19/18 08:18 Dose: 5,000 units Ceftriaxone Sodium 1,000 mg/ (Sodium Chloride) 100 mls @ 200 mls/hr IV.SIG Q24H [facility] Potassium Chloride/Sodium Chloride (Ns + Kcl 20 Meq Inj) 1,000 mls @ 100 mls/ hr IV.CONT .Q10H [facility] Last Admin: 06/19/18 08:17 Dose: 100 mls/hr Lactobacillus Acidophilus (Lactinex) 1 tab PO TID [facility] Last Admin: 06/19/18 08:18 Dose: 1 tab Ondansetron HCl (Zofran Inj) 4 mg IV.PUSH Q6H PRN PRN Reason: NAUSEA OR VOMITING Sodium Chloride (Ns Flush) 2 ml IV.FLUSH BID [facility] Last Admin: 06/19/18 08:19 Dose: Not Given Sodium Chloride (Ns Flush) 2 ml IV.FLUSH PRN PRN PRN Reason: FLUSH AFTER USING IV ACCESS Physical Exam Vital signs: Vital Signs 06/18/18 15:45 06/18/18 15:47 06/18/18 16:35 Temperature 97.6 F Pulse Rate 99 H 84 Respiratory Rate 20 18 Blood Pressure 112/57 L 87/46 L Pulse Oximetry 97 99 99 06/18/18 18:17 06/18/18 19:10 06/18/18 20:57 Temperature Pulse Rate 60 83 74 Respiratory Rate 20 18 18 Blood Pressure 86/46 L 96/47 L 111/55 L Pulse Oximetry 97 98 06/19/18 00:00 06/19/18 04:00 06/19/18 08:00 Temperature 96.0 F L 96.4 F L 97.8 F Pulse Rate 76 70 80 Respiratory Rate 18 18 14 Blood Pressure 104/55 L 108/56 L 103/66 Pulse Oximetry 95 95 97 Intake & Output 06/18/18 06/19/18 06/19/18 18:59 06:59 18:59 Intake Total 2099 / 2099 1000 / 1000 Output Total 600 / 600 Balance 1500 / 1500 1000 / 1000 Weight 45.359 kg 37.1 kg Intake: IV 2099 / 2099 1000 / 1000 NS Inj 1,000 ML @ 100 mls/hr IV 1000 / 1000 1000 / 1000 .CONT .Q10H [facility] Rx#:[id number] NS Inj 1,000 ML @ 1000 mls/hr 1000 / 1000 IV.SIG BOLUS [facility] Rx#:[id number] Rocephin Inj 1,000 MG In NS Inj 100 / 100 100 ML @ 200 mls/hr IV.SIG ONCE ONE Rx#:[id number] Output: Urine 600 / 600 Narrative: GENERAL: NAD, A&Ox3 HEAD: Normocephalic. NECK: Supple, trachea midline. No lymphadenopathy. EYES: No scleral icterus. No injection or drainage. CARDIOVASCULAR: Regular rate and rhythm without murmurs, gallops, or rubs. RESPIRATORY: Breath sounds equal bilaterally. No accessory muscle use. GASTROINTESTINAL: Abdomen soft, non-tender, nondistended. MUSCULOSKELETAL: No cyanosis, or edema. Distal joint deformity secondary to rheumatoid arthritis. SKIN: Warm and dry. NEURO: No focal neurological deficits. Results Labs CBC & Chem 7: 06/19/18 06:29 06/19/18 06:29 Imaging Impressions Chest X-Ray 06/18/18 16:35 CONCLUSION: 1. Abnormal opacity remains at the left lung base which is most characteristic of scarring. 2. No definite new infiltrates are identified. Caprini VTE Risk Assessment Caprini VTE Risk Assessment: Moderate/High Risk (score >= 2) Caprini Risk Assessment Model: Point Value = 1 Point Value = 2 Point Value = 3 Point Value = 5 Age 41-60 Minor surgery BMI > 25 kg/m2 Swollen legs Varicose veins or History of unexplained or recurrent spontaneous Oral contraceptives or hormone replacement Sepsis (< 1 month) Serious lung disease, including pneumonia (< 1 month) Abnormal pulmonary function Acute myocardial infarction Congestive heart failure (< 1 month) History of inflammatory bowel disease Medical patient at bed rest Age 61-74 Arthroscopic surgery Major open surgery (> 45 min) Laparoscopic surgery (> 45 min) Malignancy Confined to bed (> 72 hours) Immobilizing plaster cast Central venous access Age >= 75 History of VTE Family history of VTE Factor V Leiden Prothrombin [id number] Lupus anticoagulant Anticardiolipin antibodies Elevated serum homocysteine Heparin-induced thrombocytopenia Other congenital or acquired thrombophilia Stroke (< 1 month) Elective arthroplasty Hip, pelvis, or leg fracture Acute spinal cord injury (< 1 month) Prophylaxis Regimen: Total Risk Factor Score Risk Level Prophylaxis Regimen 0-1 Low Early ambulation 2 Moderate Order ONE of the following: *Sequential Compression Device (SCD) *Heparin 5000 units SQ BID 3-4 Higher Order ONE of the following medications: *Heparin 5000 units SQ TID *Enoxaparin/Lovenox 40 mg SQ daily (WT < 150 kg, CrCl > 30 mL/min) *Enoxaparin/Lovenox 30 mg SQ daily (WT < 150 kg, CrCl > 10-29 mL/min) *Enoxaparin/Lovenox 30 mg SQ BID (WT < 150 kg, CrCl > 30 mL/min) AND/OR *Sequential Compression Device (SCD) 5 or more Highest Order ONE of the following medications: *Heparin 5000 units SQ TID (Preferred with Epidurals) *Enoxaparin/Lovenox 40 mg SQ daily (WT < 150 kg, CrCl > 30 mL/min) *Enoxaparin/Lovenox 30 mg SQ daily (WT < 150 kg, CrCl > 10-29 mL/min) *Enoxaparin/Lovenox 30 mg SQ BID (WT < 150 kg, CrCl > 30 mL/min) AND *Sequential Compression Device (SCD) Assessment and Plan Plan 87-year-old female admitted secondary to acute urinary tract infection with sepsis and complications of lactic acidosis, acute kidney injury, hyponatremia, and weakness. Sepsis Lactic acidosis Acute kidney injury Hyponatremia These have improved overnight Continue monitoring renal function Continue monitoring sodium levels Urinary tract infection Continue Rocephin Continue monitoring urine culture Probiotics Weakness Secondary to UTI and Sepsis Start PT Start OT Follow for improvement Hypokalemia Replace as needed Monitor potassium levels DC IV Hydration now that sepsis is improved Rheumatoid arthritis Coronary artery disease Glaucoma No exacerbations of these conditions Continue baseline treatments DVT prophylaxis Heparin
[2018-06-19] MEDS ORDERED: Nitroglycerin SL (Override) 0.4 MG Tab SL PRN (11:08)
[2018-06-19] MEDS ORDERED: Acetaminophen 500 MG Tablet PO PRN (11:11)
[2018-06-19] MEDS: Celecoxib 200 MG Capsule PO SCH (12:20)
[2018-06-19] MEDS: predniSONE 5 MG Tablet PO SCH (12:20)
--- NOTE | 2018-06-19 15:58 | ECG ---
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 The EKG is otherwise without significant, although the PVCs are n ew. PREVIOUS TRACIN03/05/2018 01.51 DOCTOR: Baylee Randle Interpretating Date/Time 06/19/2018 15:56:01
[2018-06-19] MEDS: Latanoprost 0.005% Opth Drops 2.5 ML Bottle EACH EYE SCH (17:24)
[2018-06-19] MEDS: Carvedilol 12.5 MG Tablet PO SCH (20:52)
[2018-06-20 06:37] LABS: Baso # (Auto) 0.1 th/mm3 (0.0-0.2); Eos # (Auto) 0.1 th/mm3 (0.0-0.4); Eos % (Auto) 1.4 % (0.0-4.0); Hematocrit 29.4 % (35.0-46.0); Hemoglobin 9.7 gm/dL (11.6-15.3); Lymph # (Auto) 2.2 th/mm3 (1.0-4.8); Lymph % (Auto) 34.2 % (9.0-44.0); Mean Corpuscular HGB Conc 32.9 % (32.0-36.0); Mean Corpuscular Hemoglobin 31.4 pg (27.0-34.0); Mean Corpuscular Volume 95.4 fL (80.0-100.0); Mean Platelet Volume 7.2 fL (7.0-11.0); Mono # (Auto) 0.1 th/mm3 (0.0-0.9); Mono % (Auto) 0.8 % (0.0-8.0); Neut # (Auto) 3.9 th/mm3 (1.8-7.7); Neut % (Auto) 62.6 % (16.0-70.0); Platelet Count 249 th/mm3 (150-450); Red Blood Count 3.09 mil/mm3 (4.00-5.30); Red Cell Distribution Width 16.3 % (11.6-17.2); White Blood Count 6.4 th/mm3 (4.0-11.0)
[2018-06-20 06:39] LABS: Chloride 109 meq/L (98-107); Potassium 3.3 meq/L (3.5-5.1); Sodium 140 meq/L (136-145)
[2018-06-20 06:45] LABS: Albumin 2.4 g/dL (3.4-5.0); Glucose,Random 89 mg/dL (74-106)
[2018-06-20 06:46] LABS: Anion Gap 6 meq/L (5-15); Blood Urea Nitrogen 17 mg/dL (7-18); Carbon Dioxide 24.9 meq/L (21.0-32.0)
[2018-06-20 06:48] LABS: Alanine Aminotransferase 72 U/L (10-53); Aspartate Aminotransferase 60 U/L (15-37)
[2018-06-20 06:49] LABS: Glomerular Filtration Rate Greater Than 89 mL/min (>89)
[2018-06-20 06:50] LABS: Total Protein 5.4 g/dL (6.4-8.2)
[2018-06-20 06:51] LABS: Alkaline Phosphatase 58 U/L (45-117)
[2018-06-20] MEDS: Celecoxib 200 MG Capsule PO SCH (09:20)
[2018-06-20] MEDS: Folic Acid 1 MG Tablet PO SCH (09:20)
[2018-06-20] MEDS: Lactobacillus Acidophilus/L. Spores Tablet PO SCH ×3 (09:20→18:09)
[2018-06-20] MEDS: Carvedilol 12.5 MG Tablet PO SCH ×3 (09:20→21:00)
[2018-06-20] MEDS: predniSONE 5 MG Tablet PO SCH (09:20)
[2018-06-20] MEDS: TRIAMTERENE 50 MG PO SCH (09:21)
[2018-06-20] MEDS: Heparin - SQ 10,000 UNITS/ML Vial SQ SCH ×2 (09:21→20:57)
--- NOTE | 2018-06-20 11:29 | P.PNIM ---
Subjective Interval history: Mrs. Lee still complains of weakness. Urine cultures negative at 24 hours. Given the patient was admitted with sepsis, specification of urine culture is desired prior to discharge. At this point she is qualifying for inpatient rehab. Physical Exam Vital signs: Vital Signs 06/19/18 12:00 06/19/18 16:00 06/19/18 20:00 Temperature 98.0 F 98.4 F 97.3 F L Pulse Rate 86 82 80 Respiratory Rate 15 15 18 Blood Pressure 101/52 L 104/58 L 92/50 L Pulse Oximetry 97 97 95 06/19/18 20:05 06/20/18 00:00 06/20/18 04:00 Temperature 96.7 F L 96.2 F L Pulse Rate 81 73 79 Respiratory Rate 18 18 Blood Pressure 112/54 L 100/53 L Pulse Oximetry 95 93 L Intake & Output 06/19/18 06/20/18 06/20/18 18:59 06:59 18:59 Intake Total 3060 / 3060 0 / 0 Output Total 900 / 900 150 / 150 Balance 2160 / 2160 -150 / -150 Weight 37.6 kg Intake: IV 2100 / 2100 NS + KCl 20 mEq Inj 1,000 ML @ 1000 / 1000 100 mls/hr IV.CONT .Q10H [facility] Rx #:[id number] NS Inj 1,000 ML @ 100 mls/hr IV 1000 / 1000 .CONT .Q10H [facility] Rx#:[id number] Rocephin Inj 1,000 MG In NS Inj 100 / 100 100 ML @ 200 mls/hr IV.SIG Q24H [facility] Rx#:[id number] Oral 960 / 960 0 / 0 Output: Urine 900 / 900 150 / 150 Other: # Incontinent Voids 1 # Urine Diapers 1 # Bowel Movements 0 Narrative: GENERAL: NAD, A&Ox3 HEAD: Normocephalic. NECK: Supple, trachea midline. No lymphadenopathy. EYES: No scleral icterus. No injection or drainage. CARDIOVASCULAR: Regular rate and rhythm without murmurs, gallops, or rubs. RESPIRATORY: Breath sounds equal bilaterally. No accessory muscle use. GASTROINTESTINAL: Abdomen soft, non-tender, nondistended. MUSCULOSKELETAL: No cyanosis, or edema. Distal joint deformity secondary to rheumatoid arthritis. SKIN: Warm and dry. NEURO: No focal neurological deficits. Results Labs CBC & Chem 7: 06/20/18 06:23 06/20/18 06:23 Labs: Microbiology 06/18/18 16:55 Blood - Peripheral Aerobic Blood Culture - Preliminary No growth in 2 days 06/18/18 16:55 Blood - Peripheral Anaerobic Blood Culture - Preliminary No growth in 2 days 06/18/18 17:00 Blood - Peripheral Aerobic Blood Culture - Preliminary gram positive cocci 06/18/18 17:00 Blood - Peripheral Anaerobic Blood Culture - Preliminary No growth in 2 days 06/18/18 17:10 Catheterized Urine Urine Culture - Preliminary Group D Enterococcus Assessment and Plan Plan 87-year-old female admitted secondary to acute urinary tract infection with sepsis and complications of lactic acidosis, acute kidney injury, hyponatremia, and weakness. Continue to monitor urine cultures. Transition from IV to p.o. treatments for UTI will be selected based on final urine culture. Continue PT for weakness. Continue OT. At this point [facility] facility is anticipated at discharge for continuation of rehabilitation. Sepsis Lactic acidosis Acute kidney injury Hyponatremia These have improved overnight Continue monitoring renal function Continue monitoring sodium levels Urinary tract infection Continue Rocephin Continue monitoring urine culture Probiotics Weakness Secondary to UTI and Sepsis Start PT Start OT Follow for improvement Hypokalemia Replace as needed Monitor potassium levels DC IV Hydration now that sepsis is improved Rheumatoid arthritis Coronary artery disease Glaucoma No exacerbations of these conditions Continue baseline treatments DVT prophylaxis Heparin
[2018-06-20] MEDS: Docusate Sodium 100 MG Capsule PO SCH ×2 (16:06→20:58)
[2018-06-20] MEDS: ALPRAZolam 0.25 MG Tablet PO PRN (16:06)
[2018-06-20] MEDS: Latanoprost 0.005% Opth Drops 2.5 ML Bottle EACH EYE SCH (18:10)
[2018-06-21 08:07] LABS: Baso # (Auto) 0.1 th/mm3 (0.0-0.2); Eos # (Auto) 0.1 th/mm3 (0.0-0.4); Eos % (Auto) 1.5 % (0.0-4.0); Hematocrit 29.5 % (35.0-46.0); Hemoglobin 9.5 gm/dL (11.6-15.3); Lymph # (Auto) 2.3 th/mm3 (1.0-4.8); Lymph % (Auto) 33.2 % (9.0-44.0); Mean Corpuscular HGB Conc 32.3 % (32.0-36.0); Mean Corpuscular Hemoglobin 30.9 pg (27.0-34.0); Mean Corpuscular Volume 95.7 fL (80.0-100.0); Mean Platelet Volume 7.3 fL (7.0-11.0); Mono # (Auto) 0.1 th/mm3 (0.0-0.9); Mono % (Auto) 1.5 % (0.0-8.0); Neut # (Auto) 4.3 th/mm3 (1.8-7.7); Neut % (Auto) 62.8 % (16.0-70.0); Platelet Count 243 th/mm3 (150-450); Red Blood Count 3.08 mil/mm3 (4.00-5.30); White Blood Count 6.9 th/mm3 (4.0-11.0)
[2018-06-21 08:19] LABS: Chloride 105 meq/L (98-107); Potassium 3.7 meq/L (3.5-5.1); Sodium 138 meq/L (136-145)
[2018-06-21 08:26] LABS: Calcium 7.9 mg/dL (8.5-10.1)
[2018-06-21 08:27] LABS: Albumin 2.3 g/dL (3.4-5.0); Anion Gap 7 meq/L (5-15); Blood Urea Nitrogen 14 mg/dL (7-18); Carbon Dioxide 26.5 meq/L (21.0-32.0); Glucose,Random 94 mg/dL (74-106)
[2018-06-21 08:28] LABS: Alanine Aminotransferase 71 U/L (10-53); Aspartate Aminotransferase 54 U/L (15-37)
[2018-06-21 08:30] LABS: Glomerular Filtration Rate Greater Than 89 mL/min (>89); Total Protein 5.1 g/dL (6.4-8.2)
[2018-06-21 08:31] LABS: Alkaline Phosphatase 55 U/L (45-117)
[2018-06-21] MEDS: ALPRAZolam 0.25 MG Tablet PO PRN (08:55)
[2018-06-21] MEDS: Celecoxib 200 MG Capsule PO SCH (08:56)
[2018-06-21] MEDS: Heparin - SQ 10,000 UNITS/ML Vial SQ SCH (08:56)
[2018-06-21] MEDS: predniSONE 5 MG Tablet PO SCH (08:56)
[2018-06-21] MEDS: Carvedilol 12.5 MG Tablet PO SCH (08:56)
[2018-06-21] MEDS: Docusate Sodium 100 MG Capsule PO SCH (08:57)
[2018-06-21] MEDS: Lactobacillus Acidophilus/L. Spores Tablet PO SCH (08:57)
[2018-06-21] MEDS: TRIAMTERENE 50 MG PO SCH (08:57)
[2018-06-21] MEDS: Folic Acid 1 MG Tablet PO SCH (08:57)
--- NOTE | 2018-06-21 09:54 | P.DS ---
DS: Providers Date of admission: 06/18/18 18:31 Primary care physician: Aleksandr Chan MD Consults: 06/19/18 11:36 HUB Only Consult Order Routine Consulting Provider: Tang Fraga Reason for Consultation: [facility], ROOM 8327. Brief History from admission: Mrs. Lee is an 87-year-old female. She came into the emergency department secondary to weakness. Weakness is found to be related to a urinary tract infection. Findings at time of admit for acute kidney injury, hyponatremia, weakness, lactic acidosis, and hypotension. Sepsis criteria is qualified by her degree of lactic acidosis and hypotension coupled with found urinary tract infection. Overnight, since time of admit she has had improvement with resolution of her kidney injury normalization of her sodium and improve blood pressures. She still feels weak. DS: Summary Mrs. Lee is an 87-year-old female. He has a past medical history of rheumatoid arthritis. She came in secondary to weakness. Weakness was found to be related to her sepsis and urinary tract infection. Rocephin was chosen as a treatment. Cultures are followed. Klebsiella has grown out. Sensitivities are resulted now. UTI is sensitive to Macrobid. Patient has improved clinically. However physical deficits and weakness remain. Today she is medically stable and cleared for discharge to a snf facility. She will continue treatment on Macrobid and probiotics for her UTI. Time Spent with Patient Total time spent providing and/or coordinating discharge services: Greater than 30 minutes Results Labs on day of discharge: Labs from last 24 hours 06/21/18 06/21/18 07:52 07:52 CBC w Diff Auto diff final WBC 6.9 RBC 3.08 L Hgb 9.5 L Hct 29.5 L MCV 95.7 MCH 30.9 MCHC 32.3 RDW 17.0 Plt Count 243 MPV 7.3 Neut % (Auto) 62.8 Lymph % (Auto) 33.2 [place] % (Auto) 1.5 Eos % (Auto) 1.5 Baso % (Auto) 1.0 Neut # (Auto) 4.3 Lymph # (Auto) 2.3 [place] # (Auto) 0.1 Eos # (Auto) 0.1 Baso # (Auto) 0.1 WBC Differential . Differential Comment . Sodium 138 Potassium 3.7 Chloride 105 Carbon Dioxide 26.5 Anion Gap 7 BUN 14 Creatinine 0.39 L Estimated GFR Greater than 89 Random Glucose 94 Calcium 7.9 L Total Bilirubin 0.5 AST 54 H ALT 71 H Alkaline Phosphatase 55 Total Protein 5.1 L Albumin 2.3 L Preliminary micro results at discharge 06/18/18 17:00 Aerobic Blood Culture - Preliminary Blood - Peripheral Staphylococcus epidermidis Anaerobic Blood Culture - Preliminary No growth in 2 days 06/18/18 16:55 Aerobic Blood Culture - Preliminary Blood - Peripheral No growth in 2 days Anaerobic Blood Culture - Preliminary No growth in 2 days Impressions ITS Impressions Chest X-Ray 06/18/18 16:35 CONCLUSION: 1. Abnormal opacity remains at the left lung base which is most characteristic of scarring. 2. No definite new infiltrates are identified. Discharge Plan Discharge Disposition Patient Disposition: Discharge to SNF Discharge Condition Condition: Stable Discharge Order Discharge Orders: Discharge Order (Routine); Ordered 06/21/18 Ordered By: Jere Boyce Discharge Details Anticipated Discharge Date: 06/21/18 Physicians Team Primary Care Provider: Aleksandr Chan Attending Provider: Jere Boyce Other Providers: Karlie Ochoa,[place] Rxs /Orders / Referrals /Forms Prescriptions: New acidophilus-sporogenes [Acidophilus Ex Str (L. sporog)] 35 million- 25 million cell Tablet 1 tab PO TID Qty: 30 RF: 0 nitrofurantoin macrocrystal 50 mg capsule 50 mg PO Q6H 7 Days Qty: 28 RF: 0 Continue celecoxib 200 mg Capsule 200 mg PO DAILY RF: 0 latanoprost 0.005 % Drops 1 drp OPHTHALMIC (EYE) QPM RF: 0 rabeprazole 20 mg Tablet,Delayed Release (Dr/Ec) 20 mg PO EVERY OTHER DAY RF: 0 prednisone 5 mg Tablet 5 mg PO DAILY RF: 0 acetaminophen [Tylenol Extra Strength] 500 mg Tablet 500 mg PO BID RF: 0 nitroglycerin [Nitrostat] 0.4 mg Tablet, Sublingual 0.4 mg SUBLINGUAL Q5-15M PRN (Reason: Chest Pain) RF: 0 aspirin 81 mg Tablet,Chewable 81 mg PO DAILY RF: 0 folic acid 1 mg Tablet 1 mg PO DAILY RF: 0 methotrexate (PF) 25 mg/0.4 mL Auto-Injector 25 mg SUBCUT QWEEK RF: 0 carvedilol 12.5 mg Tablet 12.5 mg PO BID RF: 0 clopidogrel [Plavix] 75 mg Tablet 75 mg PO DAILY RF: 0 triamterene 50 mg Capsule 50 mg PO DAILY RF: 0 Referrals: Aleksandr Chan MD [Primary Care Provider] - See Instructions (PLEASE CALL YOUR [facility], AT [phone] AFTER THE WEEKEND AND HOLIDAY, OFFICES WILL BE BACK OPEN ON FRIDAY) Status ED Status: Left Department
[2018-06-21 11:47] VITALS: RESP 20
[2018-06-21 15:39] VITALS: BP 122/51; PULSE 80; TEMP 96.2; O2SAT 96
== END 2018-06-21 15:46 | DRG 872 ==
LOC: PHED 15:42 → PHEDA 18:31 → PH3 21:45
PROVIDERS: ADMIT Hospitalist; ATTEND Hospitalist
CPT/HCPCS: 71010; 71045; 80053; 81001; 83605; 83735; 84132; 84484; 85025; 87040; 87086; 87149; 87186; 87275; 87276; 87804; 90761; 90774; 93005; 96361; 96374; 97162; 97166; 99285; C8952; J0696; J1644; J3480; J7030; J7506; J7512; P9612